=== PATIENT | female | born 1990 | race Caucasian/White ===

== ENCOUNTER 2018-04-20 18:56 | Inpatient (IN) ==
[2018-04-20] MEDS ORDERED: Ibuprofen 600 MG TABLET PO ONE (19:05)
[2018-04-20] MEDS ORDERED: 0.9 % Sodium Chloride 1,000 ML IVC ONE (19:05)
[2018-04-20] MEDS ORDERED: 0.9 % Sodium Chloride 500 ML IVC ONE (19:21)
--- NOTE | 2018-04-20 19:21 | Emergency Department Note ---
Disposition Clinical Impression: Bacterial vaginosis, Acute pyelonephritis Sepsis Qualifiers: Sepsis type: sepsis due to unspecified organism Qualified Code(s): A41.9 - Sepsis, unspecified organism Disposition: Admitted As Inpatient Condition: Fair Referrals: NONE,PCP [Primary Care Provider] - Forms: ED Satisfaction Letter, Work/School Release General Adult HPI - General Chief complaint: ED Abdominal Pain Stated complaint: Pyelonepheritis sent from Time Seen by Provider: 04/20/18 19:02 Source: patient Mode of arrival: ambulatory Limitations: no limitations Nursing Notes Reviewed: Yes Vital Signs Reviewed: Yes - History of Present Illness HPI Narrative: 27-year-old female presents to the emergency department from urgent care as a transfer for possible pyelonephritis. According to there they did a urinalysis was came back very dirty patient had a fast heart rate and a fever say transferred here for further evaluation. We are unable to get any of those lab results from that facility. Patient says that this started about 3-4 days ago but symptoms went away until today she started having worsening pain now started to go up into her back which is what worried her. Patient states she has had a fever but has not been treating it. She says it does burn when she peas it feels like needles going into her vagina when she peas. She has had no vaginal discharge. She does not believe she has any STDs. She did used to use opioid pills was never injected. She otherwise is use no other street drugs she does smoke half a pack a day and does not drink alcohol. Patient otherwise has no other complaints including no chills, nausea, vomiting, headaches, blurry visi on, neck pain, chest pain, shortness of breath, changes in bowel movement, pain or tingling going down the arms or legs and generalized weakness. Pain Scale: 8 - Related Data Home Medications Medication Instructions Recorded Confirmed Tylenol 04/20/18 Allergies Allergy/AdvReac Type Severity Reaction Status Date / Time No Known Allergies Allergy Verified 04/20/18 18:03 All systems ED: reviewed and negative except as stated. Review of Systems: As Per HPI Past Medical History - Past Medical History Attestation: Yes The following information was validated with the patient. 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 - Social History Smoking Status: Current every day smoker Smokeless Tobacco Status: No Alcohol use: Reports: occasionally Drug use: Reports: none Physical Exam - General Limitations: no limitations General appearance: alert, in no apparent distress - Head Head exam: atraumatic, normocephalic, normal inspection - Eye Eye exam: Present: normal appearance, PERRL, EOMI - ENT ENT exam: normal exam, normal oropharynx, mucous membranes moist - Neck Neck exam: Present: normal inspection, full ROM, trachea midline - Chest Chest inspection: Present: normal inspection, symmetric chest wall rise - Respiratory Respiratory exam: Present: normal lung sounds bilaterally - Cardiovascular Cardiovascular exam: Present: normal rhythm, tachycardia, normal heart sounds - Abdominal Exam Abdominal exam: Present: soft, tenderness, normal bowel sounds. 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 Absent: erythema, bleeding Speculum Exam: Present: cervical OS closed, vaginal discharge, cervical discharge. Absent: erythema, vaginal bleeding Bimanual Exam: Absent: cervical motion tenderness, adnexal tenderness, right adnexal tenderness, left adnexal tenderness - Extremities Exam Extremities exam: Present: normal inspection, full ROM. Absent: tenderness, pedal edema - Expanded Lower Extremity Exam Neurovascular/Tendon exam: Present: normal capillary refill. Absent: pulse deficit, motor deficit, sensory deficit, tendon deficit - Back Exam Back exam: Present: normal inspection, full ROM, CVA tenderness (R), CVA tenderness (L). Absent: tenderness - Neurological Exam Neurological exam: Present: alert, oriented X3 - Skin Skin exam: Present: warm, dry, intact, normal color Course Course Narrative: Patient does meet Sirs criteria when she presents here. We will get basic labs including blood cultures, CBC, BMP, lactate, lipase, urinalysis, urine . We will give patient 1500 mL of IV fluid bolus to me her 30ml/kg. We will give Rocephin here. Patient will most likely be admitted for pyelonephritis. Patient is okay with this plan. Vital Signs Temperature 102.4 F H 04/20/18 18:58 Pulse Rate 158 04/20/18 18:58 Respiratory Rate 22 04/20/18 18:58 Blood Pressure 100/69 04/20/18 18:58 O2 Sat by Pulse Oximetry 97 04/20/18 18:58 Temperature 102.4 F H 04/20/18 19:11 Pulse Rate 114 04/20/18 20:28 Respiratory Rate 20 04/20/18 20:28 Blood Pressure 102/61 04/20/18 20:28 O2 Sat by Pulse Oximetry 99 04/20/18 20:28 Oxygen Delivery Oxygen Delivery Room Air Medical Decision Making - MDM Narrative Medical decision making narrative: 27-year-old female presents to the emergency department complaining of urinary pain as well as a fast heart rate. She sent from urgent care. When patient arrived she did meet Sirs criteria she was considered to be septic was not in septic shock. Patient was given the full 30 mL/kg bolus of IV fluids. She was also started on Rocephin. Patient was also given Flagyl for most likely bacterial vaginosis. Patient did have a fishy odor when we did the vaginal exam. Patient will be treated prophylax with we did get gonorrhea and chlamydia which are still pending at this time. Also got a vaginosis panel. Patient does not have previous microbiology as her urinary tract infections we will treat her with Rocephin. Because of the pain as well as the most likely vaginal infection we will got a CT abdomen and pelvis which showed acute pyelonephritis. Patient needs to be admitted to the hospital for IV antibiotics as well as continue monitoring due to being septic. Spoke with the hospitalist Dr. Valle who agreed to admit the patient to their service. Patient admitted in stable condition. Abdomen/Pelvis CT 04/20/18 19:58 IMPRESSION: Multifocal pyelonephritis primarily on the left. Collecting system mural thickening on the left may indicate ascending infection. D/ / Liban Bills MD / Liban Bills MD Interpreting Provider: Liban Bills MD - Medical Records Medical records reviewed: Yes I reviewed the patient's medical records. - Lab Data Lab results reviewed: Yes I reviewed the patient's lab results. Result diagrams: 04/20/18 19:15 04/20/18 19:15 Lab Results 04/20/18 04/20/18 04/20/18 Range/Units 19:15 19:15 19:15 WBC 29.4 H (4.3-11.1) K/mcL RBC 4.59 (3.82-4.97) M/mcL Hgb 13.6 (11.5-15.4) g/dL Hct 38.8 (35.3-44.9) % MCV 84.5 (83.0-100.0) fL MCH 29.6 (28.0-33.3) pg MCHC 35.1 (31.6-35.5) g/dL RDW 11.9 (11.5-14.5) % Plt Count 332 (140-400) K/mcL MPV 10.0 (9.4-12.4) fL Immature Gran % 2.1 (0-4) % Seg Neutrophils % 78.2 % Lymphocytes % 7.4 % Monocytes % 11.9 % Eosinophils % 0.0 % Basophils % 0.4 % Neutrophils # 23.0 H (1.6-8.9) K/mcL Lymphocytes # 2.2 (0.6-4.6) K/mcL Monocytes # 3.5 H (0.0-1.3) K/mcL Eosinophils # 0.0 (0.0-0.6) K/mcL Basophils # 0.1 (0.0-0.2) K/mcL Reactive Lymphocytes Present A (Not Present) Sodium 131 L (136-145) mEq/L Potassium 3.0 L (3.5-5.1) mEq/L Chloride 98 (98-107) mEq/L Carbon Dioxide 25 (23-29) mEq/L BUN 10 (6-20) mg/dL Creatinine 0.80 (0.60-1.20) mg/dL Est GFR ( Amer) > 60 (> 60) Est GFR (Non-Af Amer) > 60 (> 60) BUN/Creatinine Ratio 13 (6-26) Glucose 116 H (70-105) mg/dL Calculated Osmolality 272 L (280-300) Lactic Acid 1.2 (0.5-2.2) mmol/L Calcium 9.0 (8.6-10.3) mg/dL Magnesium 1.4 L (1.6-2.6) mg/dL Troponin I < 0.03 (< 0.04) ng/mL Lipase < 3 L (11-82) Units/L Urine Color (Yellow) Urine Clarity (Clear) Urine pH (5.0-8.0) pH Units Ur Specific [place] (1.010-1.025) Urine Protein (Neg-Trace) mg/dL Urine Glucose (UA) (Normal) mg/dL Urine Ketones (Negative) mg/dL Urine Blood (Negative) Urine Nitrite (Negative) Urine Bilirubin (Negative) Urine Urobilinogen (Normal) mg/dL Ur Leukocyte Esterase (Negative) Urine Microscopic RBC (0-3) per hpf Urine Microscopic WBC (0-3) per hpf Ur Squamous Epith Cells (None-Few) per lpf Urine Bacteria (None-Few) per hpf Hyaline Casts (None-Few) per lpf Ur Culture Indicated? (NO) Urine Test (Negative) Yoselin species DNA (Not Detect) Gardnerella DNA Probe (Not Detect) Trichomonas DNA Probe (Not Detect) 04/20/18 04/20/18 04/20/18 Range/Units 19:21 19:21 19:52 WBC (4.3-11.1) K/mcL RBC (3.82-4.97) M/mcL Hgb (11.5-15.4) g/dL Hct (35.3-44.9) % MCV (83.0-100.0) fL MCH (28.0-33.3) pg MCHC (31.6-35.5) g/dL RDW (11.5-14.5) % Plt Count (140-400) K/mcL MPV (9.4-12.4) fL Immature Gran % (0-4) % Seg Neutrophils % % Lymphocytes % % Monocytes % % Eosinophils % % Basophils % % Neutrophils # (1.6-8.9) K/mcL Lymphocytes # (0.6-4.6) K/mcL Monocytes # (0.0-1.3) K/mcL Eosinophils # (0.0-0.6) K/mcL Basophils # (0.0-0.2) K/mcL Reactive Lymphocytes (Not Present) Sodium (136-145) mEq/L Potassium (3.5-5.1) mEq/L Chloride (98-107) mEq/L Carbon Dioxide (23-29) mEq/L BUN (6-20) mg/dL Creatinine (0.60-1.20) mg/dL Est GFR ( Amer) (> 60) Est GFR (Non-Af Amer) (> 60) BUN/Creatinine Ratio (6-26) Glucose (70-105) mg/dL Calculated Osmolality (280-300) Lactic Acid (0.5-2.2) mmol/L Calcium (8.6-10.3) mg/dL Magnesium (1.6-2.6) mg/dL Troponin I (< 0.04) ng/mL Lipase (11-82) Units/L Urine Color Dark Yellow (Yellow) Urine Clarity Cloudy A (Clear) Urine pH 6.5 (5.0-8.0) pH Units Ur Specific [place] 1.026 H (1.010-1.025) Urine Protein 30 H (Neg-Trace) mg/dL Urine Glucose (UA) Normal (Normal) mg/dL Urine Ketones Negative (Negative) mg/dL Urine Blood Negative (Negative) Urine Nitrite Positive A (Negative) Urine Bilirubin Negative (Negative) Urine Urobilinogen Normal (Normal) mg/dL Ur Leukocyte Esterase Large H (Negative) Urine Microscopic RBC 0-3 (0-3) per hpf Urine Microscopic WBC TNTC H (0-3) per hpf Ur Squamous Epith Cells Many H (None-Few) per lpf Urine Bacteria Many H (None-Few) per hpf Hyaline Casts None Seen (None-Few) per lpf Ur Culture Indicated? NO. A (NO) Urine Test Negative (Negative) Yoselin species DNA Not Detected (Not Detect) Gardnerella DNA Probe DETECTED A (Not Detect) Trichomonas DNA Probe Not Detected (Not Detect) - Radiology Data Radiology results reviewed: Yes I reviewed the patient's radiology results. - EKG Data EKG #1 EKG attestation: Yes I reviewed and interpreted this EKG. EKG results narrative: EKG done at 1913 review by myself and the attending shows sinus tachycardia rate of 142, GA interval 1, QRS 80, QTC 434. There is no acute ST changes no acute T-wave changes no other signs of ischemia. No heart block, hypertrophy, heart strain. No WPW/Brugada/HOCM. Otherwise no old EKG to compare with
[2018-04-20] MEDS ORDERED: cefTRIAXone 1,000 MG in Water for inj. (sterile) 20 ML 10 ML IVP ONE (19:31)
[2018-04-20 19:34] LABS: Basophils % 0.4 %
[2018-04-20 19:35] LABS: Basophils # 0.1 K/mcL (0.0-0.2); Hematocrit 38.8 % (35.3-44.9); Hemoglobin 13.6 g/dL (11.5-15.4); Immature Granulocytes % 2.1 % (0-4); Lymphocytes # 2.2 K/mcL (0.6-4.6); Lymphocytes % 7.4 %; Mean Corpuscular HGB Conc 35.1 g/dL (31.6-35.5); Mean Corpuscular Hemoglobin 29.6 pg (28.0-33.3); Mean Corpuscular Volume 84.5 fL (83.0-100.0); Monocytes # 3.5 K/mcL (0.0-1.3); Monocytes % 11.9 %; Platelet Count 332 K/mcL (140-400); Red Blood Count 4.59 M/mcL (3.82-4.97); Red Cell Distribution Width 11.9 % (11.5-14.5); Segmented Neutrophils % 78.2 %
[2018-04-20 19:44] LABS: Bilirubin,Urine Negative (Negative); Blood,Urine Negative (Negative); Clarity,Urine Cloudy (Clear); Color,Urine Dark Yellow (Yellow); Glucose,Urine (UA) Normal (Normal); Ketones,Urine Negative (Negative); Leukocyte Esterase,Urine Large (Negative); Nitrite,Urine Positive (Negative); PH,Urine 6.5 pH Units (5.0-8.0); Protein,Urine 30 mg/dL (Neg-Trace); Specific Gravity,Urine 1.026 (1.010-1.025); Urobilinogen,Urine Normal (Normal)
[2018-04-20 19:46] LABS: Bacteria,Urine Many per hpf (None-Few); Hyaline Casts,Urine None Seen per lpf (None-Few); RBC,Urine 0-3 per hpf (0-3); Squamous Epithelial Cell,Urine Many per lpf (None-Few); WBC,Urine TNTC per hpf (0-3)
[2018-04-20 19:51] LABS: Troponin I < 0.03 ng/mL (< 0.04)
[2018-04-20] MEDS ORDERED: *HR* FentaNYL (PF) 100 MCG/2 ML VIAL IVP ONE (19:54)
[2018-04-20] MEDS ORDERED: Isovue-370 500 ML INFUS..BTL IV ONE (19:58)
[2018-04-20 20:03] LABS: Reactive Lymphocytes Present (Not Present)
[2018-04-20 20:08] LABS: BUN/Creatinine Ratio 13 (6-26); Blood Urea Nitrogen 10 mg/dL (6-20); Carbon Dioxide 25 mEq/L (23-29); Chloride 98 mEq/L (98-107); Glucose 116 mg/dL (70-105); Lipase < 3 Units/L (11-82); Magnesium 1.4 mg/dL (1.6-2.6); Osmolality,Calculated 272 (280-300); Sodium 131 mEq/L (136-145); eGFR For Non-African Americans > 60 (> 60)
--- NOTE | 2018-04-20 20:31 | Emergency Department Note ---
Disposition Clinical Impression: Sepsis Qualifiers: Sepsis type: sepsis due to unspecified organism Qualified Code(s): A41.9 - Sepsis, unspecified organism Disposition: Admitted As Inpatient Forms: ED Satisfaction Letter, Work/School Release General Adult HPI - General Chief complaint: ED Abdominal Pain Stated complaint: Pyelonepheritis sent from Time Seen by Provider: 04/20/18 19:02 Source: patient Mode of arrival: ambulatory Limitations: no limitations - History of Present Illness Pain Scale: 8 - Related Data Home Medications Medication Instructions Recorded Confirmed Tylenol 04/20/18 Allergies Allergy/AdvReac Type Severity Reaction Status Date / Time No Known Allergies Allergy Verified 04/20/18 18:03 Past Medical History - Past Medical History Medical history: Reports: no medical history Surgical history: Reports: other Psychiatric history: Reports: 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 - Social History Smoking Status: Current every day smoker Smokeless Tobacco Status: No Alcohol use: Reports: occasionally Drug use: Reports: none Physical Exam - General Limitations: no limitations General appearance: alert, in no apparent distress Course Vital Signs Temperature 102.4 F H 04/20/18 18:58 Pulse Rate 158 04/20/18 18:58 Respiratory Rate 22 04/20/18 18:58 Blood Pressure 100/69 04/20/18 18:58 O2 Sat by Pulse Oximetry 97 04/20/18 18:58 Temperature 102.4 F H 04/20/18 19:11 Pulse Rate 158 04/20/18 19:11 Respiratory Rate 22 04/20/18 19:11 Blood Pressure 100/69 04/20/18 19:11 O2 Sat by Pulse Oximetry 97 04/20/18 19:11 Oxygen Delivery Oxygen Delivery Room Air Medical Decision Making - Lab Data Result diagrams: 04/20/18 19:15 04/20/18 19:15 Lab Results 04/20/18 04/20/18 04/20/18 Range/Units 19:15 19:15 19:15 WBC 29.4 H (4.3-11.1) K/mcL RBC 4.59 (3.82-4.97) M/mcL Hgb 13.6 (11.5-15.4) g/dL Hct 38.8 (35.3-44.9) % MCV 84.5 (83.0-100.0) fL MCH 29.6 (28.0-33.3) pg MCHC 35.1 (31.6-35.5) g/dL RDW 11.9 (11.5-14.5) % Plt Count 332 (140-400) K/mcL MPV 10.0 (9.4-12.4) fL Immature Gran % 2.1 (0-4) % Seg Neutrophils % 78.2 % Lymphocytes % 7.4 % Monocytes % 11.9 % Eosinophils % 0.0 % Basophils % 0.4 % Neutrophils # 23.0 H (1.6-8.9) K/mcL Lymphocytes # 2.2 (0.6-4.6) K/mcL Monocytes # 3.5 H (0.0-1.3) K/mcL Eosinophils # 0.0 (0.0-0.6) K/mcL Basophils # 0.1 (0.0-0.2) K/mcL Reactive Lymphocytes Present A (Not Present) Sodium 131 L (136-145) mEq/L Potassium 3.0 L (3.5-5.1) mEq/L Chloride 98 (98-107) mEq/L Carbon Dioxide 25 (23-29) mEq/L BUN 10 (6-20) mg/dL Creatinine 0.80 (0.60-1.20) mg/dL Est GFR ( Amer) > 60 (> 60) Est GFR (Non-Af Amer) > 60 (> 60) BUN/Creatinine Ratio 13 (6-26) Glucose 116 H (70-105) mg/dL Calculated Osmolality 272 L (280-300) Lactic Acid 1.2 (0.5-2.2) mmol/L Calcium 9.0 (8.6-10.3) mg/dL Magnesium 1.4 L (1.6-2.6) mg/dL Troponin I < 0.03 (< 0.04) ng/mL Lipase < 3 L (11-82) Units/L Urine Color (Yellow) Urine Clarity (Clear) Urine pH (5.0-8.0) pH Units Ur Specific Lane (1.010-1.025) Urine Protein (Neg-Trace) mg/dL Urine Glucose (UA) (Normal) mg/dL Urine Ketones (Negative) mg/dL Urine Blood (Negative) Urine Nitrite (Negative) Urine Bilirubin (Negative) Urine Urobilinogen (Normal) mg/dL Ur Leukocyte Esterase (Negative) Urine Microscopic RBC (0-3) per hpf Urine Microscopic WBC (0-3) per hpf Ur Squamous Epith Cells (None-Few) per lpf Urine Bacteria (None-Few) per hpf Hyaline Casts (None-Few) per lpf Ur Culture Indicated? (NO) Urine Test (Negative) 04/20/18 04/20/18 Range/Units 19:21 19:21 WBC (4.3-11.1) K/mcL RBC (3.82-4.97) M/mcL Hgb (11.5-15.4) g/dL Hct (35.3-44.9) % MCV (83.0-100.0) fL MCH (28.0-33.3) pg MCHC (31.6-35.5) g/dL RDW (11.5-14.5) % Plt Count (140-400) K/mcL MPV (9.4-12.4) fL Immature Gran % (0-4) % Seg Neutrophils % % Lymphocytes % % Monocytes % % Eosinophils % % Basophils % % Neutrophils # (1.6-8.9) K/mcL Lymphocytes # (0.6-4.6) K/mcL Monocytes # (0.0-1.3) K/mcL Eosinophils # (0.0-0.6) K/mcL Basophils # (0.0-0.2) K/mcL Reactive Lymphocytes (Not Present) Sodium (136-145) mEq/L Potassium (3.5-5.1) mEq/L Chloride (98-107) mEq/L Carbon Dioxide (23-29) mEq/L BUN (6-20) mg/dL Creatinine (0.60-1.20) mg/dL Est GFR ( Amer) (> 60) Est GFR (Non-Af Amer) (> 60) BUN/Creatinine Ratio (6-26) Glucose (70-105) mg/dL Calculated Osmolality (280-300) Lactic Acid (0.5-2.2) mmol/L Calcium (8.6-10.3) mg/dL Magnesium (1.6-2.6) mg/dL Troponin I (< 0.04) ng/mL Lipase (11-82) Units/L Urine Color Dark Yellow (Yellow) Urine Clarity Cloudy A (Clear) Urine pH 6.5 (5.0-8.0) pH Units Ur Specific Lane 1.026 H (1.010-1.025) Urine Protein 30 H (Neg-Trace) mg/dL Urine Glucose (UA) Normal (Normal) mg/dL Urine Ketones Negative (Negative) mg/dL Urine Blood Negative (Negative) Urine Nitrite Positive A (Negative) Urine Bilirubin Negative (Negative) Urine Urobilinogen Normal (Normal) mg/dL Ur Leukocyte Esterase Large H (Negative) Urine Microscopic RBC 0-3 (0-3) per hpf Urine Microscopic WBC TNTC H (0-3) per hpf Ur Squamous Epith Cells Many H (None-Few) per lpf Urine Bacteria Many H (None-Few) per hpf Hyaline Casts None Seen (None-Few) per lpf Ur Culture Indicated? NO. A (NO) Urine Test Negative (Negative) Attestation Statement - Attestation Attestation: I examined this patient and my medical decision-making was reviewed with the Resident Physician. I agree with the documented findings, disposition and treatment plan as described except to the extent set forth below. 27 year old female presents to the ED with complaints of right flank and abdominal pain and is tachcyardiac and febrile. Jaciel meets SIRS criterian and she has a positive UTI and likely has pyelo but there is strong odor at bedside concerning for BV although on pelvic exam tehre is thick white dischrge and we will rule out STD, PID, or TOA and followup wiht CT with IV contast. she is not experincing any RLQ/LLQ or pelvic pain. We will treat with rocephin and flagyl at this time and then admit to medicine. IVF therpay
[2018-04-20] MEDS ORDERED: metroNIDAZOLE 500 MG TABLET PO SCH (21:00)
[2018-04-20 21:07] LABS: Candida DNA Not Detected (Not Detect); Gardnerella DNA DETECTED (Not Detect); Trichomonas DNA Not Detected (Not Detect)
[2018-04-20] MEDS ORDERED: cefTRIAXone 1,000 MG in Water for inj. (sterile) 20 ML 10 ML IVPB ONE (21:19)
[2018-04-20] MEDS: 0.9 % Sodium Chloride w KCl 20 MEQ/1,000 ML MLS IVC SCH (22:11)
[2018-04-20] MEDS ORDERED: Naloxone 0.4 MG/ML INJ IVP PRN (22:19)
[2018-04-20] MEDS ORDERED: traMADol 50 MG TABLET PO PRN (22:19)
[2018-04-20] MEDS: Ondansetron 4 MG/2 ML VIAL IVP PRN (22:48)
--- NOTE | 2018-04-20 23:43 | Internal Med History&Physical ---
Date of Encounter: 04/20/18 Time of Encounter: 21:50 Internal Medicine - H&P: HPI Chief complaint: fever, chills, flank pain Admitted From: Emergency Dept Plans for Post Hospital Care: Home History of present illness: Ms. Hood is a 27 year old female who presents to the ER tonight with chief complaint of fevers, chills, flank pain, and dysuria. She was found to have evidence of polynephritis with sepsis. She was fluid resuscitated in the ER and given antibiotics empirically for likely source of sepsis being UTI/kidney infection. Additionally, she had pelvic exam because of pelvic pain. She did have evidence of Gardnerella vaginosis. CT scan was also performed confirming clinical suspicion of pyelonephritis. She was subsequently admitted to hospitalist service. Upon my assessment of the patient, I saw patient in the ER and she appeared to be acutely ill. She remained tachycardic but her pulse was down to 110 as opposed to 150s when she came to the ER. Blood pressure has improved and remains in the 90s/60s. She still appears to be clinically dehydrated. She and her fiancee confirmed above history. Symptoms started roughly one week ago with dysuria, suprapubic pain, and some subtle flank pain. Symptoms initially improved over the next few days. However, over the last 24-48 hours, she devel oped high fevers, chills, nausea, vomiting, and worsening flank pain. She denies any cough, shortness of breath, chest pain, or diarrhea. She denies any recent history of recurrent UTIs. However, she did have recurrent UTIs as young child. She did not have any UTI since her teenage years until now. Past Med Surg Social Fam HX - Past Medical History Attestation: Yes The following information was validated with the patient. Source: patient, obtained from family, other (ER notes) Medical history: no medical history Additional medical history: Recurrent UTI as young child Psychiatric history: no psych history - Past Surgical History Surgical History: other Additional surgical history: tubal, left breast lumpectomy - Social History Smoking Status: Current every day smoker Smokeless Tobacco Status: No Alcohol use: occasionally Drug use: none Current living situation: Home, With Family Activity Level: Independent ambulation Recent Out of Country Travel Within the Last 8 Weeks: No - Family History Mother Living Status: Still Living Hx Family Cardiac Disorders: Yes (grandpa heart attack) Hx Family Respiratory Disorders: Yes (grandmother COPD) Hx Family Cancer: No Hx Family GI Disorders: No Hx Family Genitourinary Disorders: No Hx Family Endocrine Disorder: No Hx Family Musculoskeletal Disorders: No Hx Family Neuromuscular Disorders: No Hx Family Neurologic Disorders: No Hx Family HEENT Disorders: No Hx Family Autoimmune Disorders: No Hx Family Reproductive Disorders: No Hx Family Psychosocial Disorders: No Hx Family Medical Disorders: No Father Living Status: Still Living Hx Family Genitourinary Disorders: No Internal Medicine - H&P: Meds No Known Home Drugs 04/20/18 [History] Allergy/AdvReac Type Severity Reaction Status Date / Time No Known Allergies Allergy Verified 04/20/18 22:17 - Constitutional Constitutional: chills, fever(s), night sweats - EENT Eyes: no blurry vision, no change in vision Ears: no ear pain, no tinnitus Nose, mouth and throat: no nasal congestion, no sinus pressure, no sore throat - Cardiovascular Cardiovascular ROS IM: no chest pain, no dyspnea - Respiratory Respiratory: no cough, no hemoptysis, no chest congestion, no excessive phlegm production, no change in phlegm color - Gastrointestinal Gastrointestinal: nausea, vomiting, no abdominal pain, no diarrhea, no hematemesis, no hematochezia, no melena - Genitourinary Genitourinary: dysuria, flank pain, urinary frequency, urinary urgency, vaginal odor, no hematuria - Musculoskeletal Musculoskeletal ROS IM: muscle cramps, no muscle weakness - Integumentary Integumentary IM: no rash, no jaundice - Neurological Neurological ROS: no dizziness, no focal weakness, no frequent falls, no headache(s) - Psychiatric Psychiatric: no anxiety, no depression - Endocrine Endocrine IM: no polydipsia, no polyuria - Allergic/Immunologic Allergic/Immunologic: no GI upset with certain foods - Constitutional Vitals: Temp Pulse Resp BP Pulse Ox 98.5 F 167 16 92/65 100 04/20/18 23:14 04/20/18 23:14 04/20/18 23:14 04/20/18 23:14 04/20/18 23:14 General appearance: Present: cooperative, mild distress, A&O X 3, pleasant, answers questions appropriately Exam: acutely ill appearing; clinically dehydrated; mild distress due to flank pain - Head Head exam: Present: normal inspection - Eye Eye exam: Present: EOMI, PERRL. Absent: scleral icterus Pupils: Present: normal accommodation - ENT ENT exam: Present: mucous membranes dry, normal exam, normal oropharynx Additional comments: very poor dentition with diffuse dental caries - Neck Neck exam general surgery: Present: full ROM, supple. Absent: tenderness, nuchal rigidity, thyromegaly - Respiratory Respiratory exam: Present: CTAB. Absent: chest wall tenderness, rales, rhonchi, wheezes - Cardiovascular Cardiovascular exam: Present: RRR, +S1, +S2, tachycardia. Absent: diastolic murmur, systolic murmur - GI/Abdominal GI/Abdominal exam: Present: normal bowel sounds, soft, tenderness (suprapubic). Absent: guarding, hepatomegaly, mass, rebound, splenomegaly - Extremities Exam Extremities exam: Present: full ROM, warm, radial pulses palpable and symmetrical. Absent: calf tenderness, joint swelling, normal capillary refill (delayed at ~ 3-4 seconds), tenderness - Back Exam Back exam: Present: CVA tenderness (L), normal inspection. Absent: CVA tenderness (R) - Neurological Exam Neurological exam: Present: alert, CN II-XII intact, oriented X3, no focal deficits, strengths equal and symetr throughout - Psychiatric Psychiatric exam: Present: normal affect, normal mood - Skin Skin exam: Present: dry, warm. Absent: rash Internal Med - H&P Results - Labs CBC & Chem 7: 04/20/18 19:15 04/20/18 19:15 Labs: Short CBC 04/20/18 Range/Units 19:15 WBC 29.4 H (4.3-11.1) K/mcL Hgb 13.6 (11.5-15.4) g/dL Hct 38.8 (35.3-44.9) % Plt Count 332 (140-400) K/mcL Neutrophils # 23.0 H (1.6-8.9) K/mcL BMP 04/20/18 19:15 Sodium 131 L Potassium 3.0 L Chloride 98 Carbon Dioxide 25 BUN 10 Creatinine 0.80 Glucose 116 H Calcium 9.0 Cardiac Enzymes 04/20/18 Range/Units 19:15 Troponin I < 0.03 (< 0.04) ng/mL Urine 04/20/18 Range/Units 19:21 Urine Color Dark Yellow (Yellow) Urine Clarity Cloudy A (Clear) Urine pH 6.5 (5.0-8.0) pH Units Ur Specific [place] 1.026 H (1.010-1.025) Urine Protein 30 H (Neg-Trace) mg/dL Urine Glucose (UA) Normal (Normal) mg/dL - Impressions ITS Impressions Abdomen/Pelvis CT 04/20/18 19:58 IMPRESSION: Multifocal pyelonephritis primarily on the left. Collecting system mural thickening on the left may indicate ascending infection. D/ / Liban Bills MD / Liban Bills MD Interpreting Provider: Liban Bills MD - Diagnostic Studies CT scan - abdomen Status: image reviewed by me (negative other than pyelonephritis findings noted) - Assessment and plan (1) Sepsis Current Visit: Yes Status: Acute Assessment and plan: 1. Blood and urine cultures collected in ER. 2. S/P 3 ml/kg fluid resuscitation in ER. 3. Continue MIV fluids and monitor hemodynamics closely. 4. Monitor on telemetry. 5. Will treat with high dose Rocephing for suspected urine source. 6. Trend lactate and CBC. Qualifiers: Sepsis type: sepsis due to unspecified organism Qualified Code(s): A41.9 - Sepsis, unspecified organism (2) Acute pyelonephritis Current Visit: Yes Status: Acute Assessment and plan: 1. Care as above. 2. Likely source of sepsis. 3. Patient may need outpatient urology follow up given prior history of recurrent UTI as child. (3) Bacterial vaginosis Current Visit: Yes Status: Acute Assessment and plan: 1. Flagyl 500 mg po TID. (4) DVT prophylaxis Current Visit: Yes Status: Acute Assessment and plan: 1. Heparin SQ.
[2018-04-21] MEDS: *HR* OxyCODONE/APAP 5/325 TABLET PO PRN ×4 (01:42→20:44)
[2018-04-21 04:15] LABS: Eosinophils % 0.1 %; Mean Platelet Volume 10.4 fL (9.4-12.4); Red Cell Distribution Width 11.9 % (11.5-14.5)
[2018-04-21 04:17] LABS: Basophils # 0.1 K/mcL (0.0-0.2); Basophils % 0.2 %; Hematocrit 35.5 % (35.3-44.9); Hemoglobin 11.9 g/dL (11.5-15.4); Lymphocytes # 1.7 K/mcL (0.6-4.6); Lymphocytes % 6.1 %; Mean Corpuscular HGB Conc 33.5 g/dL (31.6-35.5); Mean Corpuscular Hemoglobin 29.3 pg (28.0-33.3); Mean Corpuscular Volume 87.4 fL (83.0-100.0); Monocytes # 2.8 K/mcL (0.0-1.3); Neutrophils # 23.3 K/mcL (1.6-8.9); Platelet Count 295 K/mcL (140-400); Red Blood Count 4.06 M/mcL (3.82-4.97); Segmented Neutrophils % 82.6 %
[2018-04-21 04:32] LABS: Alanine Aminotransferase 26 Units/L (7-52); Albumin 3.2 g/dL (3.5-5.7); Albumin/Globulin Ratio 1.6 (1.1-2.2); Alkaline Phosphatase 175 Units/L (34-104); Aspartate Amino Transferase 12 Units/L (13-39); BUN/Creatinine Ratio 14 (6-26); Bilirubin,Total 0.7 mg/dL (0.3-1.0); Blood Urea Nitrogen 10 mg/dL (6-20); Calcium 7.9 mg/dL (8.6-10.3); Carbon Dioxide 23 mEq/L (23-29); Chloride 109 mEq/L (98-107); Glucose 143 mg/dL (70-105); Magnesium 2.5 mg/dL (1.6-2.6); Osmolality,Calculated 284 (280-300); Potassium 3.7 mEq/L (3.5-5.1); Sodium 136 mEq/L (136-145); Total Protein 5.2 g/dL (6.4-8.9); eGFR For Non-African Americans > 60 (> 60)
[2018-04-21] MEDS: 0.9 % Sodium Chloride w KCl 20 MEQ/1,000 ML MLS IVC SCH (05:32)
[2018-04-21] MEDS: *HR* Heparin 5,000 UNIT/ML VIAL SQ SCH ×2 (05:33→18:11)
[2018-04-21] MEDS: Acetaminophen 325 MG TABLET PO PRN ×2 (06:09→12:28)
[2018-04-21 06:12] LABS: Platelet Estimate Normal (Normal)
[2018-04-21] MEDS ORDERED: Meropenem 1,000 MG in Water for inj. (sterile) 20 ML 10 ML IVP SCH (08:00)
[2018-04-21] MEDS ORDERED: cefTRIAXone 2,000 MG in Water for inj. (sterile) 20 ML 20 ML IVP SCH (08:00)
[2018-04-21] MEDS: metroNIDAZOLE 500 MG TABLET PO SCH ×3 (08:17→20:44)
[2018-04-21] MEDS: 0.9 % Sodium Chloride 1,000 ML IVC SCH ×2 (12:28→19:12)
--- NOTE | 2018-04-21 13:59 | Internal Med Progress Note ---
Hospitalist Progress Note - Encounter Date of Encounter: 04/21/18 Time of Encounter: 08:00 - Subjective Interval History: patient was seen and examiend at bedside currently denies fever, chills, N/vD. he flank pain has improved since admission tolerating PO diet pain controlled - Exam Vitals: Temp Pulse Resp BP Pulse Ox 98.6 F 70 16 79/67 99 04/21/18 11:53 04/21/18 11:53 04/21/18 11:53 04/21/18 11:53 04/21/18 11:53 Exam: General: Patient is alert, oriented, no acute distress, Head: atraumatic, normocephalic, poor dentition Eye: normal appearance, PERRL, no scleral icterus, no conjunctival injection ENT: mucous membranes moist, normal external ear exam Neck: normal inspection, trachea midline, full ROM, no carotid bruits Chest: normal inspection, symmetric chest rise Respiratory: Good respiratory effort. Bilateral breath sounds are clear without wheezing, crackles, or rhonchi. Cardiovascular: Regular rate and rhythm. s1 and s2 No clicks, rubs, gallops, or murmors. Abdomen: Bowel sounds present normoactive x-4 quadrants. Abdomen is soft, nondistended. no Epigastric tenderness. No guarding or rebound. No organomegaly noted, mild CVA tenderness musculoskeletal: Spontaneously moving all extremities. no edema, no calf tenderness Skin: warm, dry, intact. Neuro: Alert and oriented x4. Sensation light touch intact. Cranial nerves 2- 12 is intact. Not aphasic, gait is steady, rapid hand movements intact, [id number] intact, Psych: Patient's affect is normal - Assessment and Plan (1) Acute pyelonephritis Current Visit: Yes Status: Acute Assessment and Plan: started on zosyn will follow bcx and urine cx (2) Sepsis Current Visit: Yes Status: Acute Assessment and Plan: tachycardic 11, leukocytosis 29.4 most likely secondary to pyelonephritis will follow [place] cx lactic acid negative gonorhea and chlamydia NAAT negative Trichomonas negative (3) Bacterial vaginosis Current Visit: Yes Status: Acute Assessment and Plan: was started on metronidazole for 5 days (4) DVT prophylaxis Current Visit: Yes Status: Acute Assessment and Plan: heparin sc - Time Spent with Patient Total time spent is greater than 50% in coordination of care (as documented) at patient's floor/unit and/or counseling patient: Internal Medicine: Result - Labs CBC & Chem 7: 04/21/18 03:42 04/21/18 03:42 Labs: Short CBC 04/20/18 04/21/18 Range/Units 19:15 03:42 WBC 29.4 H 28.2 H (4.3-11.1) K/mcL Hgb 13.6 11.9 D (11.5-15.4) g/dL Hct 38.8 35.5 (35.3-44.9) % Plt Count 332 295 (140-400) K/mcL Neutrophils # 23.0 H 23.3 H (1.6-8.9) K/mcL BMP 04/20/18 04/21/18 19:15 03:42 Sodium 131 L 136 Potassium 3.0 L 3.7 Chloride 98 109 H Carbon Dioxide 25 23 BUN 10 10 Creatinine 0.80 0.71 Glucose 116 H 143 H Calcium 9.0 7.9 L Cardiac Enzymes 04/20/18 Range/Units 19:15 Troponin I < 0.03 (< 0.04) ng/mL Liver Function 04/21/18 Range/Units 03:42 Total Bilirubin 0.7 (0.3-1.0) mg/dL AST 12 L (13-39) Units/L ALT 26 (7-52) Units/L Alkaline Phosphatase 175 H (34-104) Units/L Albumin 3.2 L (3.5-5.7) g/dL Urine 04/20/18 Range/Units 19:21 Urine Color Dark Yellow (Yellow) Urine Clarity Cloudy A (Clear) Urine pH 6.5 (5.0-8.0) pH Units Ur Specific [place] 1.026 H (1.010-1.025) Urine Protein 30 H (Neg-Trace) mg/dL Urine Glucose (UA) Normal (Normal) mg/dL - Impressions Impressions Abdomen/Pelvis CT 04/20/18 19:58 IMPRESSION: Multifocal pyelonephritis primarily on the left. Collecting system mural thickening on the left may indicate ascending infection. D/ / Liban Bills MD / Liban Bills MD Interpreting Provider: Liban Bills MD Consult Discharge Plan - Plan Referrals: NONE,PCP [Primary Care Provider] - (2) Sepsis Qualifiers: Sepsis type: sepsis due to unspecified organism Qualified Code(s): A41.9 - Sepsis, unspecified organism
[2018-04-21] MEDS: Piperacillin/Tazobactam 3.375 GM in 0.9 % Sodium Chloride Mini Bag 100 ML IVPB SCH (15:22)
[2018-04-21] MEDS ORDERED: *HR* Morphine 2 MG/ML SYRINGE IVP ONE (15:36)
[2018-04-21] MEDS ORDERED: *HR* FentaNYL (PF) 100 MCG/2 ML VIAL IVP ONE (19:35)
[2018-04-22] MEDS ORDERED: *HR* FentaNYL (PF) 100 MCG/2 ML VIAL IVP STA (00:41)
[2018-04-22] MEDS: Piperacillin/Tazobactam 3.375 GM in 0.9 % Sodium Chloride Mini Bag 100 ML IVPB SCH ×3 (01:00→15:47)
[2018-04-22] MEDS: *HR* OxyCODONE/APAP 5/325 TABLET PO PRN ×3 (02:51→22:13)
[2018-04-22] MEDS: Acetaminophen 325 MG TABLET PO PRN (03:38)
[2018-04-22] MEDS: *HR* FentaNYL (PF) 100 MCG/2 ML VIAL IVP PRN ×5 (03:40→20:25)
[2018-04-22] MEDS: 0.9 % Sodium Chloride 1,000 ML IVC SCH ×3 (03:46→22:14)
[2018-04-22 03:53] LABS: Hematocrit 29.7 % (35.3-44.9); Mean Corpuscular HGB Conc 34.7 g/dL (31.6-35.5); Mean Corpuscular Hemoglobin 29.6 pg (28.0-33.3); Mean Corpuscular Volume 85.3 fL (83.0-100.0); Mean Platelet Volume 10.3 fL (9.4-12.4); Platelet Count 255 K/mcL (140-400); Red Blood Count 3.48 M/mcL (3.82-4.97); Red Cell Distribution Width 12.2 % (11.5-14.5)
[2018-04-22 03:54] LABS: Hemoglobin 10.3 g/dL (11.5-15.4)
[2018-04-22 04:10] LABS: BUN/Creatinine Ratio 12 (6-26); Blood Urea Nitrogen 8 mg/dL (6-20); Calcium 7.9 mg/dL (8.6-10.3); Carbon Dioxide 20 mEq/L (23-29); Chloride 107 mEq/L (98-107); Glucose 120 mg/dL (70-105); Osmolality,Calculated 280 (280-300); Potassium 3.3 mEq/L (3.5-5.1); Sodium 135 mEq/L (136-145); eGFR For Non-African Americans > 60 (> 60)
[2018-04-22] MEDS: *HR* Heparin 5,000 UNIT/ML VIAL SQ SCH ×2 (06:17→18:55)
[2018-04-22] MEDS: metroNIDAZOLE 500 MG TABLET PO SCH ×3 (09:26→20:30)
--- NOTE | 2018-04-22 10:26 | Internal Med Progress Note ---
Hospitalist Progress Note - Encounter Date of Encounter: 04/22/18 Time of Encounter: 08:30 - Subjective Interval History: patient was seen and examined at bedside currently denies fever, chills, N/vD. he flank pain has improved since admission tolerating PO diet pain controlled - Exam Vitals: Temp Pulse Resp BP Pulse Ox 98.1 F 93 18 100/55 98 04/22/18 07:01 04/22/18 07:01 04/22/18 07:01 04/22/18 07:01 04/22/18 07:01 Exam: General: Patient is alert, oriented, no acute distress, Head: atraumatic, normocephalic, poor dentition Eye: normal appearance, PERRL, no scleral icterus, no conjunctival injection ENT: mucous membranes moist, normal external ear exam Neck: normal inspection, trachea midline, full ROM, no carotid bruits Chest: normal inspection, symmetric chest rise Respiratory: Good respiratory effort. Bilateral breath sounds are clear without wheezing, crackles, or rhonchi. Cardiovascular: Regular rate and rhythm. s1 and s2 No clicks, rubs, gallops, or murmors. Abdomen: Bowel sounds present normoactive x-4 quadrants. Abdomen is soft, nondistended. no Epigastric tenderness. No guarding or rebound. No organomegaly noted, mild CVA tenderness musculoskeletal: Spontaneously moving all extremities. no edema, no calf tenderness Skin: warm, dry, intact. Neuro: Alert and oriented x4. Sensation light touch intact. Cranial nerves 2- 12 is intact. Not aphasic, gait is steady, rapid hand movements intact, [id number] intact, Psych: Patient's affect is normal - Assessment and Plan (1) Acute pyelonephritis Current Visit: Yes Status: Acute Assessment and Plan: on zosyn - deescalate as per cx Bcx NGTD UCX- in process (2) Sepsis Current Visit: Yes Status: Acute Assessment and Plan: tachycardic 111, leukocytosis 29.4 . secondary to pyelonephritis leukocytosis is trending down HR has improved Bcx NGTD lactic acid negative gonorhea and chlamydia NAAT negative Trichomonas negative (3) Bacterial vaginosis Current Visit: Yes Status: Acute Assessment and Plan: was started on metronidazole for 5 days (4) DVT prophylaxis Current Visit: Yes Status: Acute Assessment and Plan: heparin sc - Time Spent with Patient Total time spent is greater than 50% in coordination of care (as documented) at patient's floor/unit and/or counseling patient: Internal Medicine: Result - Labs CBC & Chem 7: 04/22/18 03:25 04/22/18 03:25 Labs: Short CBC 04/22/18 Range/Units 03:25 WBC 22.1 H (4.3-11.1) K/mcL Hgb 10.3 L D (11.5-15.4) g/dL Hct 29.7 L (35.3-44.9) % Plt Count 255 (140-400) K/mcL BMP 04/22/18 03:25 Sodium 135 L Potassium 3.3 L Chloride 107 Carbon Dioxide 20 L BUN 8 Creatinine 0.66 Glucose 120 H Calcium 7.9 L Consult Discharge Plan - Plan Referrals: NONE,PCP [Primary Care Provider] - (2) Sepsis Qualifiers: Sepsis type: sepsis due to unspecified organism Qualified Code(s): A41.9 - Sepsis, unspecified organism
[2018-04-22] MEDS: Ondansetron 4 MG/2 ML VIAL IVP PRN (10:40)
--- NOTE | 2018-04-22 12:04 | Electrocardiograph Report ---
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
[2018-04-23] MEDS: Piperacillin/Tazobactam 3.375 GM in 0.9 % Sodium Chloride Mini Bag 100 ML IVPB SCH ×3 (00:34→16:06)
[2018-04-23] MEDS: *HR* OxyCODONE/APAP 5/325 TABLET PO PRN ×3 (04:25→15:57)
[2018-04-23] MEDS: 0.9 % Sodium Chloride 1,000 ML IVC SCH ×2 (06:16→22:22)
[2018-04-23] MEDS: *HR* Heparin 5,000 UNIT/ML VIAL SQ SCH ×2 (06:16→19:17)
[2018-04-23 07:57] LABS: Hematocrit 31.2 % (35.3-44.9); Hemoglobin 10.5 g/dL (11.5-15.4); Mean Corpuscular HGB Conc 33.7 g/dL (31.6-35.5); Mean Corpuscular Hemoglobin 29.2 pg (28.0-33.3); Mean Corpuscular Volume 86.9 fL (83.0-100.0); Mean Platelet Volume 10.7 fL (9.4-12.4); Platelet Count 323 K/mcL (140-400); Red Blood Count 3.59 M/mcL (3.82-4.97); Red Cell Distribution Width 12.6 % (11.5-14.5)
[2018-04-23 08:08] LABS: BUN/Creatinine Ratio 12 (6-26); Blood Urea Nitrogen 8 mg/dL (6-20); Calcium 8.1 mg/dL (8.6-10.3); Carbon Dioxide 23 mEq/L (23-29); Chloride 111 mEq/L (98-107); Glucose 139 mg/dL (70-105); Osmolality,Calculated 289 (280-300); Potassium 3.4 mEq/L (3.5-5.1); Sodium 139 mEq/L (136-145); eGFR For Non-African Americans > 60 (> 60)
[2018-04-23] MEDS: metroNIDAZOLE 500 MG TABLET PO SCH ×3 (09:56→21:14)
--- NOTE | 2018-04-23 10:11 | Internal Med Progress Note ---
Hospitalist Progress Note - Encounter Date of Encounter: 04/23/18 Time of Encounter: 08:00 - Subjective Interval History: patient was seen and examined at bedside currently denies fever, chills, N/vD. tolerating PO diet pain controlled - Exam Vitals: Temp Pulse Resp BP Pulse Ox 98.4 F 106 18 97/57 97 04/23/18 07:38 04/23/18 07:38 04/23/18 07:38 04/23/18 07:38 04/23/18 07:38 Exam: General: Patient is alert, oriented, no acute distress, Head: atraumatic, normocephalic, poor dentition Eye: normal appearance, PERRL, no scleral icterus, no conjunctival injection ENT: mucous membranes moist, normal external ear exam Neck: normal inspection, trachea midline, full ROM, no carotid bruits Chest: normal inspection, symmetric chest rise Respiratory: Good respiratory effort. Bilateral breath sounds are clear without wheezing, crackles, or rhonchi. Cardiovascular: Regular rate and rhythm. s1 and s2 No clicks, rubs, gallops, or murmors. Abdomen: Bowel sounds present normoactive x-4 quadrants. Abdomen is soft, nondistended. no Epigastric tenderness. No guarding or rebound. No organomegaly noted, mild CVA tenderness musculoskeletal: Spontaneously moving all extremities. no edema, no calf tenderness Skin: warm, dry, intact. Neuro: Alert and oriented x4. Sensation light touch intact. Cranial nerves 2- 12 is intact. Not aphasic, gait is steady, rapid hand movements intact, [id number] intact, Psych: Patient's affect is normal - Assessment and Plan (1) Acute pyelonephritis Current Visit: Yes Status: Acute Assessment and Plan: WBC count trending down was 29.4 now trending down to 14.8 on zosyn - deescalate as per Bcx Bcx NGTD UCX- were set post initian of ABx - they show now growth CT A/P IMPRESSION: Multifocal pyelonephritis primarily on the left. Collecting system mural thickening on the left may indicate ascending infection. (2) Sepsis Current Visit: Yes Status: Acute Assessment and Plan: tachycardic 111, leukocytosis 29.4 . secondary to pyelonephritis leukocytosis is trending down HR has improved Bcx NGTD lactic acid negative gonorhea and chlamydia NAAT negative Trichomonas negative (3) Bacterial vaginosis Current Visit: Yes Status: Acute Assessment and Plan: was started on metronidazole for 5 days currently on day 3 (4) DVT prophylaxis Current Visit: Yes Status: Acute Assessment and Plan: heparin sc - Time Spent with Patient Total time spent is greater than 50% in coordination of care (as documented) at patient's floor/unit and/or counseling patient: Internal Medicine: Result - Labs CBC & Chem 7: 04/23/18 07:00 04/23/18 07:00 Labs: Short CBC 04/23/18 Range/Units 07:00 WBC 14.8 H (4.3-11.1) K/mcL Hgb 10.5 L (11.5-15.4) g/dL Hct 31.2 L (35.3-44.9) % Plt Count 323 (140-400) K/mcL BMP 04/23/18 07:00 Sodium 139 Potassium 3.4 L Chloride 111 H Carbon Dioxide 23 BUN 8 Creatinine 0.65 Glucose 139 H Calcium 8.1 L Consult Discharge Plan - Plan Referrals: NONE,PCP [Primary Care Provider] - (2) Sepsis Qualifiers: Sepsis type: sepsis due to unspecified organism Qualified Code(s): A41.9 - Sepsis, unspecified organism
[2018-04-23] MEDS: Acetaminophen 325 MG TABLET PO PRN (22:21)
[2018-04-24] MEDS: Piperacillin/Tazobactam 3.375 GM in 0.9 % Sodium Chloride Mini Bag 100 ML IVPB SCH ×2 (00:56→08:30)
[2018-04-24 05:11] LABS: Hematocrit 33.7 % (35.3-44.9); Hemoglobin 11.3 g/dL (11.5-15.4); Mean Corpuscular HGB Conc 33.5 g/dL (31.6-35.5); Mean Corpuscular Hemoglobin 29.1 pg (28.0-33.3); Mean Corpuscular Volume 86.9 fL (83.0-100.0); Mean Platelet Volume 10.1 fL (9.4-12.4); Platelet Count 362 K/mcL (140-400); Red Blood Count 3.88 M/mcL (3.82-4.97); Red Cell Distribution Width 12.6 % (11.5-14.5)
[2018-04-24 05:27] LABS: BUN/Creatinine Ratio 6 (6-26); Blood Urea Nitrogen 4 mg/dL (6-20); Calcium 8.3 mg/dL (8.6-10.3); Carbon Dioxide 25 mEq/L (23-29); Chloride 107 mEq/L (98-107); Glucose 96 mg/dL (70-105); Osmolality,Calculated 279 (280-300); Potassium 3.7 mEq/L (3.5-5.1); Sodium 136 mEq/L (136-145); eGFR For Non-African Americans > 60 (> 60)
[2018-04-24] MEDS: 0.9 % Sodium Chloride 1,000 ML IVC SCH (06:03)
[2018-04-24] MEDS: *HR* Heparin 5,000 UNIT/ML VIAL SQ SCH (06:03)
[2018-04-24 07:22] VITALS: BP 118/80
[2018-04-24] MEDS: Acetaminophen 325 MG TABLET PO PRN (08:31)
[2018-04-24] MEDS: metroNIDAZOLE 500 MG TABLET PO SCH (08:31)
--- NOTE | 2018-04-24 12:37 | Discharge Summary ---
- NOTES TO OUTPATIENT PROVIDER Notes to Outpatient Provider: PCP in 5 to 7 days. Follow up with primary dentist out pt. Orders not resulted at time of discharge: Pending orders 04/20/18 19:15 Culture,Blood [BC] Stat 04/20/18 22:19 ECG 12 lead ECG [ECG] Routine 04/24/18 10:53 Culture,Blood [BC] Stat Date of Encounter: 04/24/18 Time of Encounter: 12:26 - Discharge Diagnosis (1) Acute pyelonephritis Priority: Primary Status: Acute (2) Sepsis Priority: Primary Status: Acute Qualifiers: Sepsis type: sepsis due to unspecified organism Qualified Code(s): A41.9 - Sepsis, unspecified organism (3) Infected dental carries Priority: Primary Status: Acute Assessment and Plan: Strongly recommended to follow up out pt with dentist. (4) Bacterial vaginosis Priority: Primary Status: Acute (5) DVT prophylaxis Priority: Secondary Status: Acute Assessment and Plan: heparin sc Hospital course: Ms. Hood is a 27 year old female with past medical of poor dentition who presented with complaint of fevers, chills, flank pain, and dysuria. Pt had evidence of polynephritis with sepsis on admission and was managed according ly with Zosyn. WBC which was 29.4 on admission trended down to 9.6 this am. Pt was also found to have positive Gardnerella probe DNA and was treated with Flagyl. Today, 04/24/2018, Pt spike temps of 100.9 and 102.3. So far urine and blood cultures form admission show NGTD. At this point suspect this is due to infected dental carries, however pt refuses to stay for further evaluation. Boyfriend atg bedside stated he did not want her to leave and nurse Doris at bedside was present during the encounter. Pt insists on leaving AMA. CT abd and plevis with contrast done 04/20/2018 did not document renal abscess, results below CT/CT abd pelvis w iv no oral IMPRESSION: Multifocal pyelonephritis primarily on the left. Collecting system mural thickening on the left may indicate ascending infection. Pt is given scripts for Clindamycin which would cover both Bacterial vaginosis and most oral infections. She has been strongly advised to follow up with her primary dentist for further workup and management. Examination of her teeth is showing erosion to the bone of both incisors and some other teeth She is also being discharged on Amoxicillin for her Pyelonephritis. Follow up with PCP in 5 to 7 days post discharge Discharge discussed with: patient - Time Spent with Patient Total time spent providing and/or coordinating discharge services: Greater than 30 minutes - Discharge Medications Prescriptions: Clindamycin [Cleocin] 300 mg PO Q8HR 10 Days #30 capsule Amoxicillin 250 mg PO BID #3 capsule Home Medications: Amoxicillin 250 mg PO BID #3 capsule 04/24/18 [Rx] Clindamycin [Cleocin] 300 mg PO Q8HR 10 Days #30 capsule 04/24/18 [Rx] Allergies/Adverse Reactions: Allergy/AdvReac Type Severity Reaction Status Date / Time No Known Allergies Allergy Verified 04/20/18 22:17 Date of admission: 04/20/18 22:20 Primary care physician: PCP CHARLES Discharging clinician: Marti Meraz Anticipated date of discharge: 04/24/18 - Constitutional Vitals: Temp Pulse Resp BP Pulse Ox 102.3 F H 88 16 118/80 98 04/24/18 07:17 04/24/18 07:17 04/24/18 07:17 04/24/18 07:17 04/24/18 07:17 General appearance: Present: cooperative, mild distress, A&O X 3, pleasant, answers questions appropriately Exam: . - Head Head exam: Present: atraumatic, normocephalic - Eye Eye exam: Present: PERRL, conjuntiva pink, sclera anicteric Pupils: Present: PERRL - ENT Additional comments: Very poor dentition with erosion of most of her upper and lower teeth. - Patient Status Disposition: Left Against Medical Advice Condition: Fair - Discharge Instructions Follow Up With: NONE,PCP [Primary Care Provider] -
== END 2018-04-24 14:38 | disposition left against medical advice (07) | DRG 720 ==
LOC: 2NENU 18:56 → EMEROOARM 18:56 → 2NENU 22:34
PROVIDERS: ADMIT Pediatrics; ATTEND Pediatrics

== ENCOUNTER 2019-03-10 12:36 | Inpatient (IN) ==
[2019-03-10] MEDS ORDERED: Ibuprofen 400 MG TABLET PO PRN (15:34)
[2019-03-10] MEDS ORDERED: Ondansetron 4 MG/2 ML VIAL IVP PRN (15:34)
[2019-03-10] MEDS ORDERED: Naloxone 0.4 MG/ML INJ IVP PRN (15:34)
[2019-03-10] MEDS ORDERED: Potassium Chloride Elixir 20 MEQ/15 ML UDC PO ONE (15:39)
[2019-03-10] MEDS ORDERED: Magnesium Sulfate 2 GM/100 ML PIGGYBACK IVPB ONE (15:39)
--- NOTE | 2019-03-10 16:22 | Internal Med History&Physical ---
<Shai No Valorie - Last Filed: 03/10/19 16:13> Date of Encounter: 03/10/19 Time of Encounter: 16:13 Internal Medicine - H&P: HPI Chief complaint: Sepsis Admitted From: Hospital to Hospital Transfer Plans for Post Hospital Care: Home History of present illness: Ms. Hood is a 28 year old female with a past medical history of IV drug abuse, breast lumpectomy, laparoscopic cholecystectomy, pyelonephritis. She presented to [facility] with the chief complaint of chills. She also had associated symptoms of right flank pain, and shortness of breath. On presentation patient was tachycardic and febrile. Lab findings there were significant for elevated lactic acid, transaminitis, hyponatremia, hypomagnesemia. Urine drug screen was positive for amphetamines, urine test was negative, UA was positive for white blood cells and leukocyte esterase but also squamous cells. Chest x- ray was negative. Because of her right flank pain, history of pyelonephritis and signs of sepsis she was assumed to have pyelonephritis and was transferred to our hospital with that diagnosis. CT of the abdomen was not performed. In transferring ED note concern for endocarditis due to IV drug abuse and rec ommendation for echocardiogram was also mentioned however EKG was not performed there. On my evaluation the patient confirms the above history. She states she began having chills yesterday, which continued into this morning. She also complains of associated shortness of breath this morning that was relieved with administration of fluids at [facility]. She denies any urinary symptoms whatsoever however states she did not have urinary symptoms with her previous bout of pyelonephritis either. She also admits to a mild cough for several days, but adamantly denies any chest pain at any point. She also denies nausea or vomiting. She admits to social history of methamphetamine use, heroin use and fentanyl use. She also admits to tobacco use but denies alcohol use. She denies any family history of renal, hepatic, or cardiac disease. She denies any home medications or other past medical history. Past Med Surg Social Fam HX - Past Medical History Medical history: no medical history Additional medical history: Recurrent UTI as young child Psychiatric history: no psych history - Past Surgical History Surgical History: other Additional surgical history: tubal, left breast lumpectomy - Social History Smoking Status: Current every day smoker Smokeless Tobacco Status: No Alcohol use: occasionally Drug use: opiates, IV Drug Use - Family History Mother Living Status: Still Living Hx Family Cardiac Disorders: Yes (grandpa heart attack) Hx Family Respiratory Disorders: Yes (grandmother COPD) Hx Family Cancer: No Hx Family GI Disorders: No Hx Family Endocrine Disorder: No Hx Family Neuromuscular Disorders: No Hx Family Neurologic Disorders: No Hx Family HEENT Disorders: No Hx Family Autoimmune Disorders: No Father Living Status: Still Living Internal Medicine - H&P: Meds No Known Home Drugs 03/10/19 [History] Allergy/AdvReac Type Severity Reaction Status Date / Time No Known Allergies Allergy Verified 01/28/19 23:52 All Systems PM: A 10-system review of systems was performed and is negative for pertinent findings except as documented above in the HPI. Review of systems: 10 point review systems negative except as otherwise mentioned in history of present illness. - Constitutional Exam: Patient alert and oriented, somnolent, in no acute distress Heart in regular rate and rhythm without murmur or gallop, split S2 Lungs clear to auscultation bilaterally without wheeze or rales or rhonchi auscultated Abdomen soft and nontender with normal bowel sounds noted, mild right flank tenderness to palpation Bilateral lower extremities nonedematous, pulses regular and equal throughout Skin warm and dry with multiple scabs present over the upper and lower extremities and face, no bleeding or bruising or open wounds noted - Assessment and Plan (1) Sepsis Current Visit: Yes Status: Acute Assessment and plan: Patient presented as transfer from outside hospital with signs of sepsis in cluding tachycardia, fever, lactic acidosis She was given 1.5 L fluid resuscitation and 1 dose each vancomycin and Zosyn at outside hospital, we will continue those antibiotics here Other significant labs include transaminitis, hypomagnesemia, hyponatremia, no leukocytosis Source of infection not clear at this time, UA is positive with cultures pending and pyelonephritis was suspected, CT abdomen pending Her vitals are within normal limits here, we have continued fluid resuscitation with lactated Ringer's and will continue as needed Blood cultures are also collected at outside hospital and pending, we will continue to monitor and de-escalate antibiotics as appropriate Qualifiers: Sepsis type: sepsis due to unspecified organism Sepsis acute organ dysfunction status: with acute organ dysfunction Severe sepsis acute organ dysfunction type: acute liver failure Hepatic coma status: without hepatic coma Severe sepsis shock status: without septic shock Qualified Code(s): A41.9 - Sepsis, unspecified organism; R65.20 - Severe sepsis without septic shock; K72.00 - Acute and subacute hepatic failure without coma (2) Flank pain Current Visit: Yes Status: Acute Assessment and plan: Patient complaining of right flank pain, differential includes pyelonephritis however transaminases are also elevated, patient has no gallbladder Her pain is currently controlled, we will continue ibuprofen for further pain control (3) Lactic acidosis Current Visit: Yes Status: Acute Assessment and plan: Lactic acid elevated outside hospital, stat repeat ordered here, we will continue to trend (4) Transaminitis Current Visit: Yes Status: Acute Assessment and plan: Transaminases elevated on presentation Etiology includes acute and chronic viral hepatitis Patient is IV drug abuser, viral hepatitis panel is pending CT of the abdomen is also pending, INR is normal and patient does not drink, low suspicion for cirrhosis (5) IV drug abuse Current Visit: Yes Status: Acute Assessment and plan: Patient admits to abuse of methamphetamines, heroin, fentanyl UA drug screen on admission positive for methamphetamines and negative for opiates Bentyl and hydroxyzine are ordered for withdrawal, we will continue to monitor with clinical opiate withdrawal scale Patient also complained of shortness of breath at outside hospital raising concern for endocarditis in setting of IV drug abuse EKG performed here without any acute abnormality, stat troponin is pending, patient is no longer short of breath and vitals are stable (6) DVT prophylaxis Current Visit: Yes Status: Acute Assessment and plan: Sequential compression devices (7) Hypomagnesemia Current Visit: Yes Status: Acute Assessment and plan: Hypomagnesemia noted on chemistry Replaced here with 4 g IV, we will continue to monitor - Time Spent With Patient Total time spent is greater than 50% in coordination of care (as documented) at patient's floor/unit and/or counseling patient: <Jessa Terrazas - Last Filed: 03/10/19 16:48> Date of Encounter: 03/10/19 Internal Medicine - H&P: HPI History of present illness: Ms. Hood is a 28 year old female All Systems PM: A 10-system review of systems was performed and is negative for pertinent findings except as documented above in the HPI. Internal Med - H&P Results - Labs CBC & Chem 7: 03/10/19 15:59 Labs: BMP 03/10/19 15:59 Sodium 137 Potassium 4.0 Chloride 110 H Carbon Dioxide 23 BUN 10 Creatinine 0.67 Glucose 111 H Calcium 8.3 L Cardiac Enzymes 03/10/19 Range/Units 15:59 Troponin I < 0.03 (< 0.04) ng/mL Liver Function 03/10/19 Range/Units 15:59 Total Bilirubin 0.7 (0.3-1.0) mg/dL AST 240 H (13-39) Units/L ALT 205 H (7-52) Units/L Alkaline Phosphatase 177 H (34-104) Units/L Albumin 3.2 L (3.5-5.7) g/dL - Time Spent With Patient Total time spent is greater than 50% in coordination of care (as documented) at patient's floor/unit and/or counseling patient: - Attending Attestation I examined this patient and my medical decision-making was reviewed with the Resident Physician Dr No I agree with the documented findings, disposition and treatment plan as described except to the extent set forth below. Ms Hood is being observed for sepsis unknown etiology awake, staff at bedside. she notes sxs started last evening as chills and muscle aches. then today developed ruq pain wrapping to her back and presented to ED. She has had no other abd pain, no dysuria, hematuria, increased urinary frq or hesitancy. No vaginal discharge. No diarrhea/n/v. + fever and chills. Denies cp, pressure or palpitations. She noted that at ED she felt sob when her HR was fast, she was in pain and had fever. No longer sob. Has daily morning cough with smoking with clear sputum. notes no change in am cough, no new sputum production or wheezing. Last fentanyl injection yesterday morning. She anticipates she will w/d from opioids as she uses routinely. denies any abscesses. injection site are AC fossa bl arms only. Last meth use 2 days ago. gen- alert, awake,appears stated age eyes- pupils equal round , no scleral icterus cv- reg rate and rhythm, no murmurs appreciated lungs- ctabl, no wheezing, rhonchi or crackles abd- soft, tender RUQ without guarding, no rigidity, no HSM appreciated, non distended, + bs msk- + right CVA tenderness skin- multiple small excoriates/bite appearing lesions bl arms, none with drainage or surrounding erythema, mostly scabbed, track garcia bl AC fossa, no areas or induration or erythema neuro- AAOx3, CN grossly intact Sepsis, organism unknown rule out pyelonpehritis, hepatitis, retained stone in biliary tree (she has had cholecystectomy in past), rule out endocarditis, bacteremia -stat CT a/p given transaminase elevation and UA w + LE but not overwhelmingly positive for infection and no other sxs -stat echo -bl and ucxs pending, cont IV abx, IVFs, check hepatitis panel Opioid dependence, anticipate w/d- symptomatic conservative treatment Hypomagnesemia- IV mag 4 gm further dx and plan as noted by resident
[2019-03-10 16:33] LABS: Alanine Aminotransferase 205 Units/L (7-52); Albumin 3.2 g/dL (3.5-5.7); Albumin/Globulin Ratio 1.5 (1.1-2.2); Alkaline Phosphatase 177 Units/L (34-104); Aspartate Amino Transferase 240 Units/L (13-39); BUN/Creatinine Ratio 15 (6-26); Bilirubin,Total 0.7 mg/dL (0.3-1.0); Blood Urea Nitrogen 10 mg/dL (6-20); Calcium 8.3 mg/dL (8.6-10.3); Carbon Dioxide 23 mEq/L (23-29); Chloride 110 mEq/L (98-107); Globulin 2.1 g/dL (2.4-3.5); Glucose 111 mg/dL (70-105); Osmolality,Calculated 284 (280-300); Sodium 137 mEq/L (136-145); Total Protein 5.3 g/dL (6.4-8.9); eGFR For African Americans > 60 (> 60); eGFR For Non-African Americans > 60 (> 60)
--- NOTE | 2019-03-10 16:45 | Event Note ---
Date of Encounter: 03/10/19 Time of Encounter: 16:00 to serve as attending attestation pending completion of resident H&P I examined this patient and my medical decision-making was reviewed with the Resident Physician Dr Guzman I agree with the documented findings, disposition and treatment plan as described except to the extent set forth below. Ms Hood is being observed for sepsis unknown etiology awake, staff at bedside. she notes sxs started last evening as chills and muscle aches. then today developed ruq pain wrapping to her back and presented to ED. She has had no other abd pain, no dysuria, hematuria, increased urinary frq or hesitancy. No vaginal discharge. No diarrhea/n/v. + fever and chills. Denies cp, pressure or palpitations. She noted that at ED she felt sob when her HR was fast, she was in pain and had fever. No longer sob. Has daily morning cough with smoking with clear sputum. notes no change in am cough, no new sputum production or wheezing. Last fentanyl injection yesterday morning. She anticipates she will w/d from opioids as she uses routinely. denies any abscesses. injection site are AC fossa bl arms only. Last meth use 2 days ago. gen- alert, awake,appears stated age eyes- pupils equal round , no scleral icterus cv- reg rate and rhythm, no murmurs appreciated lungs- ctabl, no wheezing, rhonchi or crackles abd- soft, tender RUQ without guarding, no rigidity, no HSM appreciated, non distended, + bs msk- + right CVA tenderness skin- multiple small excoriates/bite appearing lesions bl arms, none with drainage or surrounding erythema, mostly scabbed, track garcia bl AC fossa, no areas or induration or erythema neuro- AAOx3, CN grossly intact Sepsis, organism unknown rule out pyelonpehritis, hepatitis, retained stone in biliary tree (she has had cholecystectomy in past), rule out endocarditis, bacteremia -stat CT a/p given transaminase elevation and UA w + LE but not overwhelmingly positive for infection and no other sxs -stat echo -bl and ucxs pending, cont IV abx, IVFs, check hepatitis panel Opioid dependence, anticipate w/d- symptomatic conservative treatment Hypomagnesemia- IV mag 4 gm further dx and plan as noted by resident
[2019-03-10] MEDS: Ringers Solution, Lactated 1,000 ML IVC SCH (16:46)
[2019-03-10 16:58] LABS: Hepatitis B Surface Antigen Nonreactive (Nonreactive)
[2019-03-10 17:27] LABS: Hepatitis B Core IgM Nonreactive (Nonreactive)
[2019-03-10 17:29] LABS: Hepatitis A Antibody IgM Nonreactive (Nonreactive)
[2019-03-10 18:36] LABS: Hepatitis C Virus Antibody Reactive (Nonreactive)
[2019-03-10] MEDS: Ibuprofen 400 MG TABLET PO PRN (20:20)
[2019-03-10] MEDS: hydrOXYzine pamoate 25 MG CAPSULE PO PRN (20:20)
[2019-03-10] MEDS: Piperacillin/Tazobactam 3.375 GM in 0.9 % Sodium Chloride Mini Bag 100 ML IVPB SCH (21:58)
[2019-03-11] MEDS: Ringers Solution, Lactated 1,000 ML IVC SCH (00:28)
[2019-03-11 01:23] LABS: Basophils # 0.1 K/mcL (0.0-0.2); Basophils % 0.7 %; Eosinophils # 0.3 K/mcL (0.0-0.6); Eosinophils % 1.8 %; Hematocrit 38.4 % (35.3-44.9); Hemoglobin 12.7 g/dL (11.5-15.4); Immature Granulocytes % 0.5 % (0-4); Lymphocytes # 2.4 K/mcL (0.6-4.6); Lymphocytes % 16.3 %; Mean Corpuscular HGB Conc 33.1 g/dL (31.6-35.5); Mean Corpuscular Hemoglobin 28.7 pg (28.0-33.3); Mean Corpuscular Volume 86.7 fL (83.0-100.0); Mean Platelet Volume 10.1 fL (9.4-12.4); Monocytes # 0.7 K/mcL (0.0-1.3); Monocytes % 4.5 %; Neutrophils # 11.1 K/mcL (1.6-8.9); Platelet Count 223 K/mcL (140-400); Red Blood Count 4.43 M/mcL (3.82-4.97); Red Cell Distribution Width 13.8 % (11.5-14.5); Segmented Neutrophils % 76.2 %; White Blood Count 14.6 K/mcL (4.3-11.1)
[2019-03-11 01:43] LABS: BUN/Creatinine Ratio 14 (6-26); Blood Urea Nitrogen 10 mg/dL (6-20); Calcium 8.1 mg/dL (8.6-10.3); Carbon Dioxide 26 mEq/L (23-29); Chloride 108 mEq/L (98-107); Glucose 108 mg/dL (70-105); Osmolality,Calculated 290 (280-300); Potassium 3.8 mEq/L (3.5-5.1); Sodium 140 mEq/L (136-145); eGFR For African Americans > 60 (> 60); eGFR For Non-African Americans > 60 (> 60)
[2019-03-11] MEDS: Ibuprofen 400 MG TABLET PO PRN ×3 (04:04→16:28)
[2019-03-11] MEDS: Piperacillin/Tazobactam 3.375 GM in 0.9 % Sodium Chloride Mini Bag 100 ML IVPB SCH ×3 (04:09→21:01)
[2019-03-11] MEDS: hydrOXYzine pamoate 25 MG CAPSULE PO PRN ×3 (05:39→16:28)
--- NOTE | 2019-03-11 08:27 | Internal Med Progress Note ---
<Jessa Terrazas - Last Filed: 03/11/19 12:18> Hospitalist Progress Note - Encounter Date of Encounter: 03/11/19 - Exam Vitals: Temp Pulse Resp BP Pulse Ox 97.8 F 73 18 95/54 96 03/11/19 06:54 03/11/19 06:54 03/11/19 06:54 03/11/19 06:54 03/11/19 06:54 - Time Spent with Patient Total time spent is greater than 50% in coordination of care (as documented) at patient's floor/unit and/or counseling patient: Internal Medicine: Result - Labs CBC & Chem 7: 03/11/19 00:59 03/11/19 00:59 Labs: Short CBC 03/11/19 Range/Units 00:59 WBC 14.6 H D (4.3-11.1) K/mcL Hgb 12.7 (11.5-15.4) g/dL Hct 38.4 (35.3-44.9) % Plt Count 223 (140-400) K/mcL Neutrophils # 11.1 H (1.6-8.9) K/mcL BMP 03/10/19 03/11/19 15:59 00:59 Sodium 137 140 Potassium 4.0 3.8 Chloride 110 H 108 H Carbon Dioxide 23 26 BUN 10 10 Creatinine 0.67 0.71 Glucose 111 H 108 H Calcium 8.3 L 8.1 L Cardiac Enzymes 03/10/19 Range/Units 15:59 Troponin I < 0.03 (< 0.04) ng/mL Liver Function 03/10/19 03/11/19 Range/Units 15:59 07:49 Total Bilirubin 0.7 0.3 (0.3-1.0) mg/dL Direct Bilirubin 0.1 (0.0-0.2) mg/dL AST 240 H 142 H (13-39) Units/L ALT 205 H 178 H (7-52) Units/L Alkaline Phosphatase 177 H 207 H (34-104) Units/L Albumin 3.2 L 3.2 L (3.5-5.7) g/dL - Impressions Impressions Echocardiogram 03/10/19 15:37 Impressions: LVEF 60-65%. Normal LV chamber size, wall thickness and function. Normal left ventricular diastolic function. Normal right ventricular structure and function. No evidence of pulmonary hypertension. No significant valvular dysfunction. No evidence of endocarditis visualized. Consider repeat study or FRENCH as clinically indicated. Left Ventricular Wall Motion: Rest Echo Findings All wall segments showed normal motion. Findings: Study Quality * Technically adequate exam. ECG Findings * Normal sinus rhythm. Left Ventricle * LVEF 60-65%. * Normal LV chamber size, wall thickness and function. * Normal left ventricular diastolic function. Right Ventricle * Normal right ventricular structure and function. Left Atrium * Normal left atrial size. Right Atrium * Normal right atrial size. Interatrial Septum * Interatrial septum not well evaluated. Aortic Valve * Aortic valve not well visualized. * No aortic regurgitation. * No aortic stenosis. Mitral Valve * Normal mitral valve structure and function. * No mitral regurgitation. * No mitral stenosis. Tricuspid Valve * Normal tricuspid valve structure and function. * Trace tricuspid regurgitation. * No evidence of pulmonary hypertension. Pulmonic Valve * Normal pulmonic valve structure and function. * No pulmonic regurgitation. Aorta * Normally sized aortic root. Pericardium * The pericardium appears normal. IVC * Normal IVC dimensions and inspiratory collapse. Pulmonary Artery * Normal visualized portions of the main pulmonary artery. Abdomen/Pelvis CT 03/10/19 15:59 IMPRESSION: 1. No nephroureterolithiasis identified. 2. Normal appendix. 3. No acute findings within the abdomen or pelvis. D/ : / 03/10/2019 17:47:17 Sam Engle MD / [email or web address] Interpreting Provider: Sam Engle MD - Attending Attestation I examined this patient and my medical decision-making was reviewed with the Resident Physician Dr No I agree with the documented findings, disp osition and treatment plan as described except to the extent set forth below. Ms Hood requires admission for possible sepsis unknown etiology awake, no fevers, + cold sweats and leg cramps overnight. no n/v. ruq pain that wraps to back persists but improved. no cp, pressure or sob believes she is starting opiate w/d gen- alert, awake,appears stated age eyes- pupils equal round , no scleral icterus cv- reg rate and rhythm, no murmurs appreciated lungs- ctabl abd- soft, nontedner no HSM appreciated, non distended, + bs skin- no jaundice neuro- AAOx3 Elevated HR, Fever, Elevated Lactate all resolved, + leukocytosis Possible Sepsis, organism unknown (endocarditis vs bacteremia vs UTI ) vs methamphetamine acute use vs acute Hep c CT a/p with no acute findings -echo no valve disease, no veg, no signs endocarditis, cont vanc + zosyn and follow cxs Opioid dependence, anticipate w/d- symptomatic conservative treatment Hep C- pt aware, will fu with gi outpt, symptomatic management, trend cmp further dx and plan as noted by resident <Shai No - Last Filed: 03/11/19 16:51> Hospitalist Progress Note - Encounter Date of Encounter: 03/11/19 Time of Encounter: 08:26 - Subjective Interval History: No acute events overnight. Patient states she feels much better. - Exam Vitals: Temp Pulse Resp BP Pulse Ox 97.8 F 73 18 95/54 96 03/11/19 06:54 03/11/19 06:54 03/11/19 06:54 03/11/19 06:54 03/11/19 06:54 Exam: Patient alert and oriented, in no acute distress Heart in regular rate and rhythm without murmur or gallop, split S2 Lungs clear to auscultation bilaterally without wheeze or rales or rhonchi auscultated Abdomen soft and nontender with normal bowel sounds noted Bilateral lower extremities nonedematous, pulses regular and equal throughout Skin warm and dry with multiple scabs present over the upper and lower extremities and face, no bleeding or bruising or open wounds noted - Assessment and Plan (1) Sepsis Current Visit: Yes Status: Resolved Assessment and Plan: Patient presented as transfer from outside hospital with signs of sepsis including tachycardia, fever, lactic acidosis She was given 1.5 L fluid resuscitation and 1 dose each vancomycin and Zosyn at outside hospital, we continued those antibiotics here Other significant labs included transaminitis, hypomagnesemia, hyponatremia, no leukocytosis Source of infection not clear at this time, UA was positive with cultures pending and pyelonephritis was suspected CT abdomen showed no acute intra-abdominal or pelvic abnormalities, pyelonephritis ruled out Blood cultures were also collected at outside hospital and pending, we will continue to monitor and de-escalate antibiotics as appropriate Hepatitis C screen was positive, HIV screen was negative, echocardiogram was negative for endocarditis It is still not clear if patient's symptoms and clinical signs were secondary to infectious sepsis or some other etiology Active hepatitis C infection is still possible, methamphetamine abuse is another differential, UTI sepsis still likely as well We will continue vancomycin and Zosyn and follow cultures as well as clinical disposition (2) Flank pain Current Visit: Yes Status: Resolved (3) Lactic acidosis Current Visit: Yes Status: Resolved (4) Transaminitis Current Visit: Yes Status: Acute Assessment and Plan: Likely secondary to hepatitis C infection, no signs of cirrhosis, patient is aware of her diagnosis She was counseled that hepatitis C is treatable but that she would need to follow up outpatient with gastroenterology She was also counseled that hepatitis C treatment is dependent on cessation of IV drug abuse (5) IV drug abuse Current Visit: Yes Status: Acute Assessment and Plan: Patient admits to abuse of methamphetamines, heroin, fentanyl UA drug screen on admission positive for methamphetamines and negative for opiates Bentyl and hydroxyzine are ordered for withdrawal, we will continue to monitor with clinical opiate withdrawal scale (6) DVT prophylaxis Current Visit: Yes Status: Acute Assessment and Plan: Sequential compression devices - Time Spent with Patient Total time spent is greater than 50% in coordination of care (as documented) at patient's floor/unit and/or counseling patient: Internal Medicine: Result - Labs CBC & Chem 7: 03/11/19 00:59 03/11/19 00:59 Labs: Short CBC 03/11/19 Range/Units 00:59 WBC 14.6 H D (4.3-11.1) K/mcL Hgb 12.7 (11.5-15.4) g/dL Hct 38.4 (35.3-44.9) % Plt Count 223 (140-400) K/mcL Neutrophils # 11.1 H (1.6-8.9) K/mcL BMP 03/10/19 03/11/19 15:59 00:59 Sodium 137 140 Potassium 4.0 3.8 Chloride 110 H 108 H Carbon Dioxide 23 26 BUN 10 10 Creatinine 0.67 0.71 Glucose 111 H 108 H Calcium 8.3 L 8.1 L Cardiac Enzymes 03/10/19 Range/Units 15:59 Troponin I < 0.03 (< 0.04) ng/mL Liver Function 03/10/19 Range/Units 15:59 Total Bilirubin 0.7 (0.3-1.0) mg/dL AST 240 H (13-39) Units/L ALT 205 H (7-52) Units/L Alkaline Phosphatase 177 H (34-104) Units/L Albumin 3.2 L (3.5-5.7) g/dL - Impressions Impressions Abdomen/Pelvis CT 03/10/19 15:59 IMPRESSION: 1. No nephroureterolithiasis identified. 2. Normal appendix. 3. No acute findings within the abdomen or pelvis. D/ /10/2019 17:47:17 Sam Engle MD / [email or web address] Interpreting Provider: Sam Engle MD <Shai No - Last Filed: 03/11/19 16:51> (1) Sepsis Qualifiers: Sepsis type: sepsis due to unspecified organism Sepsis acute organ dysfunction status: with acute organ dysfunction Severe sepsis acute organ dysfunction type: acute liver failure Hepatic coma status: without hepatic coma Severe sepsis shock status: without septic shock Qualified Code(s): A41.9 - Sepsis, unspecified organism; R65.20 - Severe sepsis without septic shock; K72.00 - Acute and subacute hepatic failure without coma
[2019-03-11 08:40] LABS: Albumin 3.2 g/dL (3.5-5.7); Albumin/Globulin Ratio 1.3 (1.1-2.2); Bilirubin,Direct 0.1 mg/dL (0.0-0.2); Bilirubin,Indirect 0.2 mg/dL (0.0-1.2); Bilirubin,Total 0.3 mg/dL (0.3-1.0); Globulin 2.5 g/dL (2.4-3.5); Total Protein 5.7 g/dL (6.4-8.9)
[2019-03-11] MEDS: 0.9 % Sodium Chloride 1,000 ML IVC SCH ×2 (10:14→21:01)
[2019-03-11 11:18] LABS: HIV-1&2 Antibody & p24 Ag Nonreactive (Nonreactive)
[2019-03-11] MEDS ORDERED: 0.9 % Sodium Chloride 500 ML IVC ONE (12:17)
[2019-03-11 14:45] LABS: Hepatitis C Virus Antibody Reactive (Nonreactive)
[2019-03-12] MEDS: Ibuprofen 400 MG TABLET PO PRN (02:30)
[2019-03-12] MEDS: hydrOXYzine pamoate 25 MG CAPSULE PO PRN (02:30)
[2019-03-12] MEDS: Piperacillin/Tazobactam 3.375 GM in 0.9 % Sodium Chloride Mini Bag 100 ML IVPB SCH ×2 (03:44→12:34)
[2019-03-12 05:29] LABS: Basophils # 0.1 K/mcL (0.0-0.2); Eosinophils # 0.4 K/mcL (0.0-0.6); Eosinophils % 4.7 %; Hematocrit 38.2 % (35.3-44.9); Hemoglobin 12.6 g/dL (11.5-15.4); Immature Granulocytes % 0.4 % (0-4); Lymphocytes # 2.6 K/mcL (0.6-4.6); Lymphocytes % 30.8 %; Mean Corpuscular Hemoglobin 28.4 pg (28.0-33.3); Mean Platelet Volume 10.4 fL (9.4-12.4); Monocytes # 0.7 K/mcL (0.0-1.3); Monocytes % 8.8 %; Neutrophils # 4.5 K/mcL (1.6-8.9); Platelet Count 239 K/mcL (140-400); Red Blood Count 4.44 M/mcL (3.82-4.97); Red Cell Distribution Width 13.7 % (11.5-14.5); Segmented Neutrophils % 54.3 %; White Blood Count 8.3 K/mcL (4.3-11.1)
[2019-03-12 05:43] LABS: Alanine Aminotransferase 141 Units/L (7-52); Albumin 3.2 g/dL (3.5-5.7); Albumin/Globulin Ratio 1.2 (1.1-2.2); Alkaline Phosphatase 184 Units/L (34-104); Aspartate Amino Transferase 72 Units/L (13-39); BUN/Creatinine Ratio 20 (6-26); Bilirubin,Total 0.3 mg/dL (0.3-1.0); Blood Urea Nitrogen 12 mg/dL (6-20); Calcium 8.6 mg/dL (8.6-10.3); Carbon Dioxide 24 mEq/L (23-29); Chloride 109 mEq/L (98-107); Globulin 2.7 g/dL (2.4-3.5); Glucose 112 mg/dL (70-105); Osmolality,Calculated 289 (280-300); Sodium 139 mEq/L (136-145); Total Protein 5.9 g/dL (6.4-8.9); eGFR For African Americans > 60 (> 60); eGFR For Non-African Americans > 60 (> 60)
--- NOTE | 2019-03-12 08:19 | Internal Med Progress Note ---
<Jessa Terrazas - Last Filed: 03/12/19 10:22> Hospitalist Progress Note - Encounter Date of Encounter: 03/12/19 - Exam Vitals: Temp Pulse Resp BP Pulse Ox 97.9 F 70 16 112/75 96 03/12/19 07:09 03/12/19 07:09 03/12/19 07:09 03/12/19 07:03/12/19 07:09 - Time Spent with Patient Total time spent is greater than 50% in coordination of care (as documented) at patient's floor/unit and/or counseling patient: Internal Medicine: Result - Labs CBC & Chem 7: 03/12/19 03:59 03/12/19 03:59 Labs: Short CBC 03/12/19 Range/Units 03:59 WBC 8.3 (4.3-11.1) K/mcL Hgb 12.6 (11.5-15.4) g/dL Hct 38.2 (35.3-44.9) % Plt Count 239 (140-400) K/mcL Neutrophils # 4.5 (1.6-8.9) K/mcL BMP 03/12/19 03:59 Sodium 139 Potassium 4.0 Chloride 109 H Carbon Dioxide 24 BUN 12 Creatinine 0.60 Glucose 112 H Calcium 8.6 Liver Function 03/12/19 Range/Units 03:59 Total Bilirubin 0.3 (0.3-1.0) mg/dL AST 72 H (13-39) Units/L ALT 141 H (7-52) Units/L Alkaline Phosphatase 184 H (34-104) Units/L Albumin 3.2 L (3.5-5.7) g/dL - Impressions Impressions Abdomen/Pelvis CT 03/10/19 15:59 IMPRESSION: 1. No nephroureterolithiasis identified. 2. Normal appendix. 3. No acute findings within the abdomen or pelvis. D/ /10/2019 17:47:17 Sam nEgle MD / beatriz Interpreting Provider: Sam Engle MD Consult Discharge Plan - Plan Referrals: NONE,PCP [Primary Care Provider] - - Attending Attestation The history, physical exam, and medical decision making was performed by the medical student Mark either while I was physically present and actively involved or I personally re-performed the exam and medical decision making. I have verified the accuracy of the medical student's documentation with regards to the history, physical exam findings, and medical decision making. Ms Hood requires admission SIRS, hepatitis awake, no fevers, no chills, no ruq pain today, feeling overall greatly improved gen- alert, awake,appears stated age eyes- pupils equal round , no scleral icterus cv- reg rate and rhythm, no murmurs appreciated lungs- ctabl abd- soft, nontedner no HSM appreciated, non distended, + bs skin- no jaundice neuro- AAOx3 Elevated HR, Fever, Elevated Lactate all resolved SIRS in setting of IVDA, ruling out sepsis, if she was septic it is since resolved as has SIRS at this time it appears this may have been methamphetamine acute use altering VS + Hep c CT a/p with no acute findings, Ucx mixed orgs, no sig growth, bl cxs remain ngtd 2d out, echo no valve disease, no veg, no signs endocarditis -cont vanc + zosyn today and follow cxs update from today, if remains afebrile and cxs remain ngtd at end of day will trial off abx Opioid dependence- symptomatic conservative treatment for w/d prn Hep C- liver enzymes improving pt aware, will fu with gi outpt, symptomatic management, trend cmp further dx and plan as noted by resident <Rishi Flores - Last Filed: 03/12/19 14:35> Hospitalist Progress Note - Encounter Date of Encounter: 03/12/19 Time of Encounter: 08:19 - Subjective Interval History: Ms. Hood is a 28 y/o F who presented to the ED on 03/10 with SOB, chills, right flank pain, and symptoms of possible sepsis. She is currently being treated with Vancomyosin and Zosyn for possible sepsis of unknown etiology and for infection. She is an IV drug user, urine toxicology was positive for methamphetamines, and serology returned positive for hepatitis C. She currently complains of leg cramps which she believes is due to withdrawal symptoms. She denies fever/chills, cold sweats, SOB, chest pain, lightheadedness, confusion, abd pain, trouble sleeping, or any other symptoms of opioid withdraw. - Exam Vitals: Temp Pulse Resp BP Pulse Ox 97.9 F 70 16 112/75 96 03/12/19 07:09 03/12/19 07:09 03/12/19 07:09 03/12/19 07:03/12/19 07:09 Exam: Gen: AOx3, no acute distress, pleasant affect Head: atraumatic, normocephalic. Resp: CTA b/l, no wheezing or crackles CV: RRR, S1 and S2, no m/r/g Abd: bowel sounds present, soft, non-tender, non-distended, no CVA tenderness Skin: warm and dry; scaps on all 4 extremities from previous IV drug use Extremities: sensation intact, pulses present, no muscle strength deficits Neuro: no focal deficits, cooperative with exam. - Assessment and Plan (1) Sepsis Current Visit: Yes Status: Resolved Assessment and Plan: Patient is currently afebrile and hemodynamically stable, she was given vancomycin and zosyn for sepsis of unknown etiology at [facility]. Currently awaiting blood cultures and will continue to monitor to de-escalate antibiotic use, UA has not shown specific growth. Elevated transaminases have been attributed to hepatits C, pt. will followup on outpatient with GI and PCP. It is still not clear if patient's symptoms and clinical signs were secondary to infectious sepsis or some other etiology. We will continue vancomycin and Zosyn and follow cultures as well as clinical disposition. Discharge possible on 03/13 and discontinuation of antibiotics if cultures continue to be negative. (2) IV drug abuse Current Visit: Yes Status: Acute Assessment and Plan: Patient admits to abuse of methamphetamines, heroin, fentanyl; drug screen positive for methamphetamines. Bentyl and hydroxyzine are ordered for withdrawal, we will continue to monitor with clinical opiate withdrawal scale. Patient states that withdrawal symptoms are under control and has no complaints, we will consult social work to evaluate patient for drug rehabilitation. Patient will followup with PCP for continuation of drug rehabilitation and treatment. (3) Flank pain Current Visit: Yes Status: Resolved (4) Lactic acidosis Current Visit: Yes Status: Resolved (5) Transaminitis Current Visit: Yes Status: Acute Assessment and Plan: Likely secondary to hepatitis C infection, no signs of cirrhosis, patient is aware of her diagnosis and treatment options. Hepatitis C treatment will likely be outpatient GI consultation, Social work will evaluate patient for IV drug abuse and followup with PCP. She was also counseled that hepatitis C treatment is dependent on cessation of IV drug abuse. LFT's continue to fall as of 03/12, will continue to monitor LFT's until discharge. PAtient will followup with GI outpatient and PCP for hepatitis C treatment. (6) DVT prophylaxis Current Visit: Yes Status: Acute Assessment and Plan: Sequential Compression Devices - Time Spent with Patient Total time spent is greater than 50% in coordination of care (as documented) at patient's floor/unit and/or counseling patient: Internal Medicine: Result - Labs CBC & Chem 7: 03/12/19 03:59 03/12/19 03:59 Labs: Short CBC 03/12/19 Range/Units 03:59 WBC 8.3 (4.3-11.1) K/mcL Hgb 12.6 (11.5-15.4) g/dL Hct 38.2 (35.3-44.9) % Plt Count 239 (140-400) K/mcL Neutrophils # 4.5 (1.6-8.9) K/mcL BMP 03/12/19 03:59 Sodium 139 Potassium 4.0 Chloride 109 H Carbon Dioxide 24 BUN 12 Creatinine 0.60 Glucose 112 H Calcium 8.6 Liver Function 03/11/19 03/12/19 Range/Units 07:49 03:59 Total Bilirubin 0.3 0.3 (0.3-1.0) mg/dL Direct Bilirubin 0.1 (0.0-0.2) mg/dL AST 142 H 72 H (13-39) Units/L ALT 178 H 141 H (7-52) Units/L Alkaline Phosphatase 207 H 184 H (34-104) Units/L Albumin 3.2 L 3.2 L (3.5-5.7) g/dL - Impressions Impressions Echocardiogram 03/10/19 15:37 Impressions: LVEF 60-65%. Normal LV chamber size, wall thickness and function. Normal left ventricular diastolic function. Normal right ventricular structure and function. No evidence of pulmonary hypertension. No significant valvular dysfunction. No evidence of endocarditis visualized. Consider repeat study or FRENCH as clinically indicated. Left Ventricular Wall Motion: Rest Echo Findings All wall segments showed normal motion. Findings: Study Quality * Technically adequate exam. ECG Findings * Normal sinus rhythm. Left Ventricle * LVEF 60-65%. * Normal LV chamber size, wall thickness and function. * Normal left ventricular diastolic function. Right Ventricle * Normal right ventricular structure and function. Left Atrium * Normal left atrial size. Right Atrium * Normal right atrial size. Interatrial Septum * Interatrial septum not well evaluated. Aortic Valve * Aortic valve not well visualized. * No aortic regurgitation. * No aortic stenosis. Mitral Valve * Normal mitral valve structure and function. * No mitral regurgitation. * No mitral stenosis. Tricuspid Valve * Normal tricuspid valve structure and function. * Trace tricuspid regurgitation. * No evidence of pulmonary hypertension. Pulmonic Valve * Normal pulmonic valve structure and function. * No pulmonic regurgitation. Aorta * Normally sized aortic root. Pericardium * The pericardium appears normal. IVC * Normal IVC dimensions and inspiratory collapse. Pulmonary Artery * Normal visualized portions of the main pulmonary artery. Abdomen/Pelvis CT 03/10/19 15:59 IMPRESSION: 1. No nephroureterolithiasis identified. 2. Normal appendix. 3. No acute findings within the abdomen or pelvis. D/ : / 03/10/2019 17:47:17 Sam Engle MD / beatriz Interpreting Provider: Sam Engle MD <Rishi Flores - Last Filed: 03/12/19 14:35> (1) Sepsis Qualifiers: Qualified Code(s): A41.9 - Sepsis, unspecified organism; R65.20 - Severe sepsis without septic shock; K72.00 - Acute and subacute hepatic failure without coma
[2019-03-12] MEDS: 0.9 % Sodium Chloride 1,000 ML IVC SCH (09:08)
--- NOTE | 2019-03-12 10:27 | Electrocardiograph Report ---
[place] [id number] Test Date: 2019-03-10 Pat Name: Marie Hood Department: 113 Room: 3B46 Gender: F Internal Consultant: : [id number] Requested By: Jessa Terrazas Order Number: [id number] Reading MD: Marcelo Brito Measurements Intervals [place] Rate: 72 P: 50 W[place]: 139 QRS: 57 QRSD: 85 T: 48 QT: 404 QTc: 428 Interpretive Statements SINUS RHYTHM WITH MARKED SINUS ARRHYTHMIA Electronically Signed On 03-12-2019 10:26:23 EDT by Marcelo Brito
[2019-03-12 11:01] VITALS: BP 97/55
[2019-03-12] MEDS ORDERED: Aminoglycoside Consult 1 EACH MC ONE (14:34)
--- NOTE | 2019-03-12 14:42 | Discharge Summary ---
- NOTES TO OUTPATIENT PROVIDER Notes to Outpatient Provider: admitted with concern for sepsis, found to have hep c, new dx. needs to see GI outpt. Suspect VS instability that triggered sepsis was d/t Methamphetamines in her system. We could not identify infection besides Hep C, but given her IVDA we were ruling out bacteremia. She was to remain inpt 24 more hr to confirm no growth but she left 03/12/19 AMA due to her child being sick. Orders not resulted at time of discharge: Pending orders 03/11/19 09:50 Hepatitis C Qnt Reflx Genotype Routine Date of Encounter: 03/12/19 Time of Encounter: 09:00 - Discharge Diagnosis (1) Sepsis Priority: Primary Status: Resolved Assessment and Plan: Elevated HR, Fever, Elevated Lactate all resolved SIRS in setting of IVDA, ruling out sepsis, if she was septic it is since resolved as has SIRS at this time it appears this may have been methamphetamine acute use altering VS + Hep c infection CT a/p with no acute findings, Ucx mixed orgs, no sig growth, bl cxs remain ngtd 2d out, echo no valve disease, no veg, no signs endocarditis -plan was to cont vanc + zosyn today and follow cxs update from today, if remained afebrile and cxs remain ngtd were were going to trial off abx she left ama urgently and was gone before I was even able to be notified. she has no pcp to follow up with and left before we could even educate her on s/s to monitor for or discuss if she would require abx, I attempted to contact but no answer and no voicemail. she was [facility] in attempt for her to fu cxs with someone Qualifiers: Sepsis type: sepsis due to unspecified organism Sepsis acute organ dysfunction status: with acute organ dysfunction Severe sepsis acute organ dysfunction type: acute liver failure Hepatic coma status: without hepatic coma Severe sepsis shock status: without septic shock Qualified Code(s): A41.9 - Sepsis, unspecified organism; R65.20 - Severe sepsis without septic shock; K72.00 - Acute and subacute hepatic failure without coma (2) Hepatitis C Priority: Secondary Status: Acute Assessment and Plan: Hep C reactive, new dx- liver enzymes improving, pt aware, will fu with gi outpt, symptomatic management, referral was made to GI for follow up Qualifiers: Viral hepatitis chronicity: unspecified Hepatic coma status: without hepatic coma Qualified Code(s): B19.20 - Unspecified viral hepatitis C without hepatic coma (3) IV drug abuse Priority: Secondary Status: Chronic Assessment and Plan: She initially was interested in drug rehab, but left AMA due to having a sick child Hospital course: Ms. Hood is a 28 year old female with pmhx IVDA, methamphetamine use who presented with generalized un wellness followed by RUQ pain. Her VS in ED were concerning for sepsis. UDS + meth which we suspect now was contributing at least to her HR on admit. She had extensive infectious work up, ken in setting of IVDA. See diagnosis section of this document for complete details. The only + findings were hep C reactive panel. She was aware of result and had plan to fu with GI outpt to see if she would be treatment candidate. She was doing well, remained without fever or lab abnormalities on empiric abx, ruq resolved and liver enzymes downtrended. Plan was to trial her off abx and monitor for leukocytosis, fever or sxs given bl cx negative x2 days, however 03/12/19 she left unexpectedly AMA due to a child being sick. I was not even aware until she had gone. I tried contacting her by phone to tell her warning s/s of infection and to return to a ER immediately if she developed them, but their was no answer and no option to leave a voicemail. I have placed referrals to the [facility] in hopes she will fu to confirm cxs remain neg and referral to GI for outpt hep c eval. Discharge discussed with: other (LEFT AMA) - Time Spent with Patient Total time spent providing and/or coordinating discharge services: - Discharge Medications Prescriptions: No Action No Known Home Drugs 1 each .ROUTE AD each Home Medications: No Known Home Drugs 03/10/19 [History] Allergies/Adverse Reactions: Allergy/AdvReac Type Severity Reaction Status Date / Time No Known Allergies Allergy Verified 01/28/19 23:52 Date of admission: 03/11/19 12:17 Primary care physician: PCP NONE Consults: 03/12/19 11:18 Consult to Plant Operations Manager [CONS] Routine Reason for SW Consult: IVDA with Hep C, requesting consultation for social contact worker and possible referral to rehab - Constitutional Vitals: Temp Pulse Resp BP Pulse Ox 98.4 F 72 16 97/55 97 03/12/19 10:54 03/12/19 10:54 03/12/19 10:54 03/12/19 10:54 03/12/19 10:54 Exam: gen- alert, awake,appears stated age eyes- pupils equal round , no scleral icterus cv- reg rate and rhythm, no murmurs appreciated lungs- ctabl abd- soft, nontedner no HSM appreciated, non distended, + bs skin- no jaundice neuro- AAOx3 - Patient Status Disposition: Left Against Medical Advice Condition: Fair Functional capacity at discharge: independent ambulation Overall status at discharge: patient is progressing back to baseline - Discharge Instructions Follow Up With: NONE,PCP [Primary Care Provider] - Raymond Villafana MD [Resident] - Epifanio Bonds MD [Partnered Physician] -
[2019-03-14 10:15] LABS: HCV Quant Interpretation NOT DETECTED (Not Detected); HCV Quant Log NOT DETECTED log IU/mL
== END 2019-03-12 14:35 | disposition left against medical advice (07) | DRG 720 ==
LOC: 3BNU → SUATTDRO 15:17
PROVIDERS: ADMIT Internal Medicine; ATTEND Internal Medicine